=== PATIENT | male | born 1950 | race Caucasian/White ===

== ENCOUNTER 2016-04-16 15:44 | Inpatient (IN) | payer OTHER ==
--- NOTE | 2016-04-16 15:58 | PDOC ---
Rapid Medical Evaluation Time Seen by Provider: 04/16/16 15:54 Medical Evaluation: Allergies Allergy/AdvReac Type Severity Reaction Status Date / Time No Known Allergies Allergy Verified 04/16/16 15:53 04/16/16 15:54 I have performed a brief in-person evaluation of this patient. The patient presents with a chief complaint of: dizziness x 3days , off balance and nausea with headache 3 days ago Pertinent physical exam findings: on mult. psych meds (recent change in the past month), VSS I have ordered the following: EKG, orthostatic, cbc, comp,mag, ua, The patient will proceed to the ED for further evaluation. 04/16/16 15:58
[2016-04-16 16:42] LABS: BASOPHIL 0.2 % (0-2.0); EOSINOPHIL 0.4 % (0-4.5); MCH 31.8 pg (25.7-33.7); MCHC 34.6 g/dl (32.0-35.9); MEAN CELL VOLUME 91.7 fl (80-96); MEAN PLT VOLUME 8.6 fl (7.5-11.1); NEUTROPHILS 60.4 % (42.8-82.8); PLATELET COUNT 237 K/MM3 (134-434); RDW 13.1 % (11.9-15.9); WHITE BLOOD COUNT 9.4 K/mm3 (4.0-10.0)
[2016-04-16 17:09] LABS: ALBUMIN 3.9 g/dl (3.4-5.0); ANION GAP 9 (8-16); BILIRUBIN,TOTAL 0.8 mg/dL (0.2-1.0); CALCIUM 8.8 mg/dL (8.5-10.1); CO2 30 mmol/L (21-32); CREATININE 0.9 mg/dL (0.7-1.3); GLUCOSE,RANDOM 88 mg/dL (74-106); MAGNESIUM 2.3 mg/dL (1.8-2.4); SGOT/AST 28 U/L (15-37); SGPT/ALT 26 U/L (12-78); TOT PROT 7.7 g/dl (6.4-8.2)
[2016-04-16 17:10] LABS: ALK PHOS 82 U/L (45-117)
[2016-04-16 17:12] LABS: TROPONIN I < 0.02 ng/ml (0.00-0.05)
[2016-04-16] MEDS ORDERED: dilTIAZem HCL 50 MG/10 ML - 10 ML VIAL IVPUSH ONE (17:46)
[2016-04-16] MEDS ORDERED: dilTIAZem HCL 30 MG TABLET (FP) PO ONE (17:46)
[2016-04-16] MEDS ORDERED: dilTIAZem HCL 30 MG TABLET (FP) ONE (17:58)
[2016-04-16] MEDS ORDERED: dilTIAZem HCL 125 MG/25 ML - 25 ML VIAL ONE (17:59)
--- NOTE | 2016-04-16 18:02 | PDOC ---
History of Present Illness - General Chief Complaint: Lightheaded Stated Complaint: WEAKNESS,DIZZINESS , FATIGUE, FEVER Time Seen by Provider: 04/16/16 15:54 History Source: Patient - History of Present Illness Timing/Duration: reports: constant Severity/Quality: reports: mild Past History - Past Medical History Allergies/Adverse Reactions: Allergies Allergy/AdvReac Type Severity Reaction Status Date / Time No Known Allergies Allergy Verified 04/16/16 15:53 Home Medications: Ambulatory Orders Docusate Sodium [Colace -] 100 mg PO BID #20 capsule 07/12/14 Docusate Sodium [Dulcolax Stool Softener] 100 mg PO DAILY #15 capsule 08/31/14 Polyethylene Glycol 3350 [Miralax (For Bowel Prep) -] 255 gm PO QID #1 btl 08/31 Sodium Phosphate/Na Biphos [Fleet Adult Rectal Enema -] 133 ml RC BID PRN #6 enema 08/31/14 Venlafaxine HCl [Effexor -] 225 mg PO BID 08/31/14 GI Disorders: Yes (H/O HEMORRHOIDS,) Psychiatric Problems: Yes (DEPRESSION.) - Surgical History Lung Surgery: (LT THORACIC SX D/T PNEUMO.) - Psycho/Social/Smoking Cessation Hx Anxiety: No Suicidal Ideation: No Smoking History: Current every day smoker Have you smoked in the past 12 months: Yes Number of Cigarettes Smoked Daily: 20 Information on smoking cessation initiated: Yes 'Breaking Loose' booklet given: 04/16/16 Hx Alcohol Use: No Drug/Substance Use Hx: No Substance Use Type: None Cardiac Specific PMH - Complaint Specific PMHX GERD: No Review of Systems - Review of Systems Constitutional: No: Chills, Fever HEENTM: No: Blurred Vision Respiratory: No: Cough, Shortness of Breath Cardiac (ROS): No: Chest Pain ABD/GI: No: Diarrhea, Nausea, Vomiting : No: Dysuria Neurological: No: Headache, Dizziness *Physical Exam - Vital Signs Last Vital Signs Temp Pulse Resp BP Pulse Ox 97.4 F L 63 18 128/82 100 04/16/16 15:55 04/16/16 15:55 04/16/16 15:55 04/16/16 15:55 04/16/16 15:55 - Physical Exam General Appearance: Yes: Appropriately Dressed. No: Apparent Distress HEENT: positive: Normal Voice. negative: Scleral Icterus (R), Scleral Icterus ( L) Neck: positive: Supple Respiratory/Chest: positive: Lungs Clear, Normal Breath Sounds. negative: Respiratory Distress Cardiovascular: positive: Irregularly Irregular Gastrointestinal/Abdominal: positive: Soft. negative: Tender Extremity: positive: Normal Inspection Integumentary: positive: Dry, Warm Neurologic: positive: Fully Oriented, Alert, Normal Mood/Affect Heart Score/ECG Review - ECG Intrepretation Comment:: 04/16/16 18:16 rapid afib to 121 bpm ED Treatment Course - LABORATORY CBC & Chemistry Diagram: 04/16/16 16:30 04/16/16 16:30 - ADDITIONAL ORDERS Additional order review: Laboratory Results 04/16/16 04/16/16 16:30 16:30 Sodium 126 L Potassium 3.7 Chloride 87 L D Carbon Dioxide 30 Anion Gap 9 BUN 22 H D Creatinine 0.9 Creat Clearance w eGFR > 60 Random Glucose 88 Calcium 8.8 Magnesium 2.3 Total Bilirubin 0.8 AST 28 D ALT 26 D Alkaline Phosphatase 82 D Creatine Kinase 358 H CK-MB (CK-2) 8.122 H Troponin I < 0.02 Total Protein 7.7 Albumin 3.9 04/16/16 16:30 RBC 4.61 MCV 91.7 MCHC 34.6 RDW 13.1 MPV 8.6 Neutrophils % 60.4 Lymphocytes % 23.3 Monocytes % 15.7 H Eosinophils % 0.4 Basophils % 0.2 - RADIOLOGY Radiology Studies Ordered: Category Date Time Status CHEST X-RAY PORTABLE* [RAD] Stat Radiology 04/16/16 17:45 Taken - Medications Given in the ED: ED Medications Discontinued Medications Generic Name Dose Route Start Last Admin Trade Name Freq PRN Reason Stop Dose Admin Diltiazem HCl 30 mg 04/16/16 17:46 04/16/16 18:03 Cardizem - PO 04/16/16 17:47 30 mg ONCE ONE Administration Diltiazem HCl 20 mg 04/16/16 17:46 04/16/16 18:00 Cardizem Injection - IVPUSH 04/16/16 17:47 20 mg ONCE ONE Administration Medical Decision Making - Medical Decision Making 04/16/16 17:52 65 yo M, h/o depression, sent in by psychiatrist for unstable gait today in office. Pt states for the past 3 days he has felt "unsteady on his feet". Denies fall. States 5 days ago he also had headache and nausea which has since resolved. No dizziness, vomiting, visual changes or focal weakness. Patient denies chest pain or shortness of breath. See exam New onset afib -placed on monitor and given IV and po cardizem for rapid afib -[id number] score of 0 so will hold off on AC at this time -cards c/s placed -admit 04/16/16 17:56 04/16/16 18:03 *DC/Admit/Observation/Transfer Diagnosis at time of Disposition: New onset a-fib - Discharge Dispostion Condition at time of disposition: Fair Admit: Yes Decision to Admit order Date/Time: Decision to Admit Order Category Date Time Status Decision to Admit to Hospital Routine Admission 04/16/16 18:15 Active
[2016-04-16] MEDS ORDERED: SODIUM CHLORIDE 1,000 ML IV STA (18:14)
[2016-04-16 18:36] LABS: INR 1.1 (0.82-1.09); PROTHROMBIN TIME (PATIENT) 12.1 SEC (9.98-11.88)
--- NOTE | 2016-04-16 19:12 | CON.CARD ---
Consult Consult Specialty:: Cardiology Referred by:: Hospitalist Medicine Reason for Consultation:: Newly diagnosed afib - History of Present Illness Chief Complaint: Gait disturbance History of Present Illness: 65 yo WM initially presented with dysequilibrium, found to be in asymptomatic rapid afib 120s without chest pain, dyspnea, near or true syncope, palpitations , orthopnea, PND or LE edema. Spontaneously converted to SR with rate-control. - History Source History Provided By: Patient Limitations to Obtaining History: No Limitations - Alcohol/Substance Use Hx Alcohol Use: No - Smoking History Smoking history: Current every day smoker Have you smoked in the past 12 months: Yes Aproximately how many cigarettes per day: 20 Home Medications - Allergies Allergies/Adverse Reactions: Allergies Allergy/AdvReac Type Severity Reaction Status Date / Time No Known Allergies Allergy Verified 04/16/16 15:53 - Home Medications Home Medications: Ambulatory Orders Docusate Sodium [Colace -] 100 mg PO BID #20 capsule 07/12/14 Docusate Sodium [Dulcolax Stool Softener] 100 mg PO DAILY #15 capsule 08/31/14 Polyethylene Glycol 3350 [Miralax (For Bowel Prep) -] 255 gm PO QID #1 btl 08/31 Sodium Phosphate/Na Biphos [Fleet Adult Rectal Enema -] 133 ml RC BID PRN #6 enema 08/31/14 Venlafaxine HCl [Effexor -] 225 mg PO BID 08/31/14 Review of Systems - Review of Systems Neurological: reports: Incoordination, Unsteady Gait Vital Signs: Vital Signs Temperature 97.4 F L 04/16/16 15:55 Pulse Rate 58 L 04/16/16 18:45 Respiratory Rate 20 04/16/16 18:45 Blood Pressure 120/95 04/16/16 18:45 O2 Sat by Pulse Oximetry (%) 100 04/16/16 18:45 Constitutional: Yes: No Distress, Calm Neck: Yes: Supple Respiratory: Yes: Regular, CTA Bilaterally Gastrointestinal: Yes: Normal Bowel Sounds, Soft Cardiovascular: Yes: Regular Rate and Rhythm JVD: No Carotid Bruit: No Heart Sounds: Yes: S1, S2 Edema: No - Other Data Labs, Other Data: INR, PTT INR 1.10 (0.82-1.09) 04/16/16 17:23 Afib@121->NSR 60s Imaging - Results Chest X-ray: Pending Problem List - Problems (1) Paroxysmal atrial fibrillation Code(s): I48.0 - PAROXYSMAL ATRIAL FIBRILLATION (2) Hyponatremia Code(s): E87.1 - HYPO-OSMOLALITY AND HYPONATREMIA (3) Gait disturbance Code(s): R26.9 - UNSPECIFIED ABNORMALITIES OF GAIT AND MOBILITY Assessment/Plan 1. Paroxysmal atrial fibrillation -> SR [id number] 2. Gait disturbance 3. Hyponatremia P:1. Check TSH, echocardiogram to assess LV and valve fxn 2. Given low stroke risk score, not candidate for anticoagulation 3. Start Toprol XL 25 qd and ASA 81 qd 4. Further recommendations pending above study results, monitor Na levels, free water restrict 5. Thank you for consultative opportunity
--- NOTE | 2016-04-16 19:57 | HP ---
CHIEF COMPLAINT: new onset afib HISTORY OF PRESENT ILLNESS: 65 yo M, with apst medical h/o depressiona and anxiety was sent in by his psychiatrist because of unstable gait. Patient states that he noticed a unstable gait 3 days ago, he states he was walking and then he feels lightheaded and weakness in legs. He also reports that he had fall and hit his head. and neck stiffness, seizure, urine and stool incontinence. Denies any numbness and focal neurological deficit, chest pain, sob. He also reports having headache and nausea 5 days ago which get resolved. He states that he felt warm like having a fever and reports burning micturation and increase in frequency. Denies cough, runny nose, diarrhoea. In ED patient diagnosed to have new onset a fib ER course was notable for: (1) cbc, cmp, ekg (2) iv cardiazem (3)1 L fluid Recent Travel: no PAST MEDICAL HISTORY: depression PAST SURGICAL HISTORY:(LT THORACIC SX D/T PNEUMO.) Social History: Smoking: current smoker alcohol - no Drugs: no Family History: Allergies No Known Allergies Allergy (Verified 04/16/16 15:53) HOME MEDICATIONS: Home Medications Medication Instructions Recorded Docusate Sodium [Colace -] 100 mg PO BID #20 capsule 07/12/14 Docusate Sodium [Dulcolax Stool 100 mg PO DAILY #15 capsule 08/31/14 Softener] Polyethylene Glycol 3350 [Miralax 255 gm PO QID #1 btl 08/31/14 (For Bowel Prep) -] Sodium Phosphate/Na Biphos [Fleet 133 ml RC BID PRN #6 enema 08/31/14 Adult Rectal Enema -] Venlafaxine HCl [Effexor -] 225 mg PO BID 08/31/14 REVIEW OF SYSTEMS CONSTITUTIONAL: Absent: fever, chills, diaphoresis, generalized weakness, malaise, HEENT: Absent: rhinorrhea, nasal congestion, throat pain, throat swelling, difficulty swallowing, mouth swelling, CARDIOVASCULAR: Absent: chest pain, syncope, palpitations, irregular heart rate, lightheadedness , peripheral edema RESPIRATORY: Absent: cough, shortness of breath, dyspnea with exertion, orthopnea, wheezing, stridor, hemoptysis GASTROINTESTINAL: Absent: abdominal pain, abdominal distension, nausea, vomiting, diarrhea, constipation, GENITOURINARY: Absent: dysuria, frequency, urgency, hesitancy, hematuria, flank pain, genital pain MUSCULOSKELETAL: Absent: myalgia, arthralgia, joint swelling, back pain, neck pain SKIN: Absent: rash, itching, pallor HEMATOLOGIC/IMMUNOLOGIC: Absent: easy bleeding, easy bruising, lymphadenopathy, frequent infections ENDOCRINE: Absent: unexplained weight gain, unexplained weight loss, heat intolerance, cold intolerance NEUROLOGIC: Absent: headache, focal weakness or paresthesias, dizziness, unsteady gait, seizure, mental status changes, bladder or bowel incontinence PSYCHIATRIC: Absent: anxiety, depression, suicidal or homicidal ideation, hallucinations. PHYSICAL EXAMINATION Vital Signs - 24 hr 04/16/16 04/16/16 04/16/16 18:20 18:26 18:45 Pulse Rate [ 102 H 95 H 58 L Apical] Respiratory 20 20 Rate Blood Pressure 91/71 120/95 [Right Arm] O2 Sat by Pulse 100 100 Oximetry (%) GENERAL: Awake, alert, and fully oriented, in no acute distress. HEAD: Normal with no signs of trauma. EYES: Pupils equal, round and reactive to light, extraocular movements intact, sclera anicteric, conjunctiva clear. EARS, NOSE, THROAT: Ears normal, nares patent, oropharynx clear without exudates. NECK: Normal range of motion, supple without lymphadenopathy, LUNGS: Breath sounds equal, clear to auscultation bilaterally. No wheezes, and no crackles. No accessory muscle use. HEART: Regular rate and rhythm, normal S1 and S2 without murmur, rub or gallop. ABDOMEN: Soft, nontender, not distended, normoactive bowel sounds, no guarding, no rebound, no masses. No hepatomegaly or splenomegaly. MUSCULOSKELETAL: Normal range of motion at all joints. No bony deformities or tenderness. No CVA tenderness. UPPER EXTREMITIES: 2+ pulses, warm, well-perfused. No cyanosis. No clubbing. Cap refill <2 seconds. No peripheral edema. LOWER EXTREMITIES: 2+ pulses, warm, well-perfused. No calf tenderness. No peripheral edema. NEUROLOGICAL: Cranial nerves II-XII intact. Normal speech., made him stand and he complained of lightheadedness PSYCHIATRIC: Cooperative. Good eye contact. Appropriate mood and affect. SKIN: Warm, dry, normal turgor, no rashes or lesions noted CBCD WBC 9.4 K/mm3 (4.0-10.0) 04/16/16 16:30 RBC 4.61 M/mm3 (4.00-5.60) 04/16/16 16:30 Hgb 14.7 GM/dL (11.7-16.9) 04/16/16 16:30 Hct 42.3 % (35.4-49) 04/16/16 16:30 MCV 91.7 fl (80-96) 04/16/16 16:30 MCHC 34.6 g/dl (32.0-35.9) 04/16/16 16:30 RDW 13.1 % (11.9-15.9) 04/16/16 16:30 Plt Count 237 K/MM3 (134-434) 04/16/16 16:30 MPV 8.6 fl (7.5-11.1) 04/16/16 16:30 CMP Sodium 126 mmol/L (136-145) L 04/16/16 16:30 Potassium 3.7 mmol/L (3.5-5.1) 04/16/16 16:30 Chloride 87 mmol/L (98-107) L D 04/16/16 16:30 Carbon Dioxide 30 mmol/L (21-32) 04/16/16 16:30 Anion Gap 9 (8-16) 04/16/16 16:30 BUN 22 mg/dL (7-18) H D 04/16/16 16:30 Creatinine 0.9 mg/dL (0.7-1.3) 04/16/16 16:30 Creat Clearance w eGFR > 60 (>60) 04/16/16 16:30 Random Glucose 88 mg/dL (74-106) 04/16/16 16:30 Calcium 8.8 mg/dL (8.5-10.1) 04/16/16 16:30 Total Bilirubin 0.8 mg/dL (0.2-1.0) 04/16/16 16:30 AST 28 U/L (15-37) D 04/16/16 16:30 ALT 26 U/L (12-78) D 04/16/16 16:30 Alkaline Phosphatase 82 U/L (45-117) D 04/16/16 16:30 Total Protein 7.7 g/dl (6.4-8.2) 04/16/16 16:30 Albumin 3.9 g/dl (3.4-5.0) 04/16/16 16:30 CARDIAC ENZYMES Creatine Kinase 358 IU/L (39-308) H 04/16/16 16:30 Troponin I < 0.02 ng/ml (0.00-0.05) 04/16/16 16:30 Current Medications Generic Name Dose Route Start Last Admin Trade Name Arnaldo PRN Reason Stop Dose Admin Aspirin 81 mg 04/16/16 19:30 Asa - PO DAILY AMNA Sodium Chloride 1,000 mls @ 75 mls/hr 04/16/16 20:15 Normal Saline - IV ASDIR AMNA Metoprolol Succinate 25 mg 04/16/16 19:30 Toprol Xl - PO DAILY AMNA . ASSESSMENT/PLAN: : 65 yo M, with apst medical h/o depressiona and anxiety was sent in by his psychiatrist because of unstable gait and found to have a fib. new onset afib rate control, got cardiazem in ed started on metoprolol xl 25 mg daily [id number] SCORE 0, no ac required at this time, started on aspirin 81 mg daily Follow electolyte and tsh Follow ECHO to assess LV and valve fxn cardiac monitoring monitor vitals will place him in tele cardiology consult appreciated Hyponatremia follow urine lytes, osmo, serum osmo on IV fluid ns 75ml/hr goal to increase by 0.5 to 1 meq/hr Fall could be due to postural hypotension, hponatremia or a fib Follow CT head ordered orthostatic vitals. started on IV fluid NS 75 ml/hr physical therapy evaluation. fall risk precaution Depression/ anxiety continue home meds h/o chronic tinnitus he follow up with intake worker in out patient ENT follow up as an out patient Fluid : NS 75ml/hr electrolyte : repeat in morning nutrition : regular diet add salt in it. dvt pro: scd, not on sq heparin due to fall risk gi pro ; not required physical therapy Dispo: admit in tele Visit type - Emergency Visit Emergency Visit: Yes ED Registration Date: 04/16/16 Care time: The patient presented to the Emergency Department on the above date and was hospitalized for further evaluation of their emergent condition. - New Patient This patient is new to me today: Yes Date on this admission: 04/17/16 - Critical Care Critical Care patient: No
[2016-04-16] MEDS ORDERED: ASPIRIN 81 MG CHEWABLE TABLETS ONE (20:21)
[2016-04-16] MEDS ORDERED: METOPROLOL SUCCINATE 50 MG TAB.SR.24H (FP) ONE (20:21)
[2016-04-16] MEDS: ASPIRIN 81 MG CHEWABLE TABLETS PO SCH (20:30)
[2016-04-16] MEDS: METOPROLOL SUCCINATE 25 MG TAB.SR.24H (FP) PO SCH (20:30)
[2016-04-16 20:43] LABS: URINE APPEARANCE CLEAR; URINE BILIRUBIN NEGATIVE (NEGATIVE); URINE COLOR COLORLESS; URINE GLUCOSE (UA) NEGATIVE (NEGATIVE); URINE KETONE NEGATIVE (NEGATIVE); URINE LEUK ESTERASE NEGATIVE (NEGATIVE); URINE NITRITE NEGATIVE (NEGATIVE); URINE PROTEIN NEGATIVE (NEGATIVE); URINE UROBILINOGEN NEGATIVE E.U./dl (0.2-1.0)
[2016-04-16 20:46] LABS: URINE BLOOD 2+ (NEGATIVE)
[2016-04-16 20:50] LABS: URINE RBC 2 /hpf (0-3)
--- NOTE | 2016-04-16 21:22 | PN ---
[id number] the patient. I reviewed the resident's note and discussed the case with the resident. I agree with the resident's findings and plan as documented. SUBJECTIVE: 65 year old male who presented with 3 days of dizziness, and unsteady gait, nausea, and headache 3 days ago. The patented reported that he has had 5 falls in 3 days secondary to his symptoms. The patient noted that 2 of his falls (1 today and 1 yesterday) resulted in him hitting his head against a pipe in his bathroom. The patient denied loss of consciousness from any of his falls. In ED patient was found to be in afib with irregular heartbeat. Past Medical History: Constipation, hemorrhoids, depression, anxiety, tenitis OBJECTIVE: Vital Signs: Last Vital Signs Temp Pulse Resp BP Pulse Ox 97.4 F L 58 L 20 120/95 99 04/16/16 15:55 04/16/16 18:45 04/16/16 18:45 04/16/16 18:45 04/16/16 19:50 GENERAL: Awake, alert, and fully oriented, in no acute distress HEENT: Atraumatic. PERRLA, EOMI. Moist mucosa. No JVD LUNGS: No distress, speaks full sentences, clear to auscultation bilaterally HEART: Regular rate and rhythm, normal S1 and S2, no murmurs, rubs or gallops, peripheral pulses normal and equal bilaterally. ABDOMEN: Soft, nontender, normoactive bowel sounds. No guarding, no rebound. No masses EXTREMITIES: Normal inspection, Normal range of motion, no edema. No clubbing or cyanosis. NEUROLOGICAL: Cranial nerves II through XII grossly intact. Normal speech, normal gait, no focal sensorimotor deficits SKIN: Warm, Dry, normal turgor, no rashes or lesions noted. Labs: CBCD WBC 9.4 K/mm3 (4.0-10.0) 04/16/16 16:30 RBC 4.61 M/mm3 (4.00-5.60) 04/16/16 16:30 Hgb 14.7 GM/dL (11.7-16.9) 04/16/16 16:30 Hct 42.3 % (35.4-49) 04/16/16 16:30 MCV 91.7 fl (80-96) 04/16/16 16:30 MCHC 34.6 g/dl (32.0-35.9) 04/16/16 16:30 RDW 13.1 % (11.9-15.9) 04/16/16 16:30 Plt Count 237 K/MM3 (134-434) 04/16/16 16:30 MPV 8.6 fl (7.5-11.1) 04/16/16 16:30 CMP Sodium 126 mmol/L (136-145) L 04/16/16 16:30 Potassium 3.7 mmol/L (3.5-5.1) 04/16/16 16:30 Chloride 87 mmol/L (98-107) L D 04/16/16 16:30 Carbon Dioxide 30 mmol/L (21-32) 04/16/16 16:30 Anion Gap 9 (8-16) 04/16/16 16:30 BUN 22 mg/dL (7-18) H D 04/16/16 16:30 Creatinine 0.9 mg/dL (0.7-1.3) 04/16/16 16:30 Creat Clearance w eGFR > 60 (>60) 04/16/16 16:30 Calcium 8.8 mg/dL (8.5-10.1) 04/16/16 16:30 Total Bilirubin 0.8 mg/dL (0.2-1.0) 04/16/16 16:30 AST 28 U/L (15-37) D 04/16/16 16:30 ALT 26 U/L (12-78) D 04/16/16 16:30 Alkaline Phosphatase 82 U/L (45-117) D 04/16/16 16:30 Total Protein 7.7 g/dl (6.4-8.2) 04/16/16 16:30 Albumin 3.9 g/dl (3.4-5.0) 04/16/16 16:30 Imagin. Abdomen X-ray Impression: severe constipation with fecal impact. Correlation recommended ASSESSMENT AND PLAN : 1. New onset afib -Metoprolol XL 25 mg daily -Aspirin 81 mg daily -ECHO -Chadsvasc score is 0 -Cardiology consult appreciated 2. Moderate Hyponatremia -Follow urine lytes repeat in AM - Normal saline 3. Fall -CT head -Repeat BMP in AM -IV fluid normal saline 75 ml/hr -Fall risk precaution -Physical therapy evaluation for gait 4. Tinnitus- may be contributing frequent falls -[employer] follow up outpatient -ENT follow up outpatient 5. Depression/anxiety -Continue home medications 6. DVT PPX -SCDs Admit to tele Documentation prepared by Jd Miranda, acting as medical radiation tech for Dr. Karlene Winter MD. <Karlene Winter - Last Filed: 04/22/16 19:59> Teaching Attending Note Name of Resident: Billy Starkey
[2016-04-16] MEDS ORDERED: VENLAFAXINE HCL 100 MG TABLET PO SCH (22:00)
[2016-04-16] MEDS: VENLAFAXINE HCL 75 MG E.R. CAPSULES (FP) PO SCH (22:53)
[2016-04-16] MEDS: SODIUM CHLORIDE 1,000 ML IV SCH (22:55)
[2016-04-17 01:21] VITALS: BMI 26.2
[2016-04-17 07:03] LABS: BASOPHIL 0.3 % (0-2.0); EOSINOPHIL 1.1 % (0-4.5); MCH 31.8 pg (25.7-33.7); MCHC 34.8 g/dl (32.0-35.9); MEAN CELL VOLUME 91.3 fl (80-96); MEAN PLT VOLUME 8.7 fl (7.5-11.1); NEUTROPHILS 54.1 % (42.8-82.8); PLATELET COUNT 199 K/MM3 (134-434); RDW 13.1 % (11.9-15.9); WHITE BLOOD COUNT 9.3 K/mm3 (4.0-10.0)
[2016-04-17 07:29] LABS: ALBUMIN 3.3 g/dl (3.4-5.0); ANION GAP 11 (8-16); CALCIUM 8.3 mg/dL (8.5-10.1); CO2 27 mmol/L (21-32); CREATININE 0.8 mg/dL (0.7-1.3); GLUCOSE,RANDOM 88 mg/dL (74-106); MAGNESIUM 2.2 mg/dL (1.8-2.4); PHOSPHOROUS 2.7 mg/dL (2.5-4.9); SGOT/AST 20 U/L (15-37); SGPT/ALT 23 U/L (12-78)
[2016-04-17 07:34] LABS: ALK PHOS 65 U/L (45-117); BILIRUBIN,TOTAL 0.9 mg/dL (0.2-1.0); TOT PROT 6.4 g/dl (6.4-8.2); TROPONIN I 0.02 ng/ml (0.00-0.05)
--- NOTE | 2016-04-17 09:02 | PN ---
Physical Exam: SUBJECTIVE: Patient seen and examined Patient feels weak, stated that drinks more than 2 cups of coffee per day. Worried about his cats that will not be fed. OBJECTIVE: Vital Signs Temperature 97.6 F 04/17/16 06:00 Pulse Rate 59 L 04/17/16 06:00 Respiratory Rate 20 04/17/16 06:00 Blood Pressure 128/66 04/17/16 06:00 O2 Sat by Pulse Oximetry (%) 99 04/16/16 21:00 GENERAL: The patient is awake, alert, and fully oriented, in no acute distress. lying in bed comfortably HEAD: Normal with no signs of trauma. EYES: PERRL, extraocular movements intact, sclera anicteric, conjunctiva clear. No ptosis. ENT: Ears normal, oropharynx clear without exudates, moist mucous membranes. NECK: Trachea midline, full range of motion, supple. LUNGS: Breath sounds equal, clear to auscultation bilaterally, no wheezes, no crackles, no accessory muscle use. HEART: Regular rate and rhythm, S1, S2 without murmur, rub or gallop. ABDOMEN: Soft, nontender, nondistended, normoactive bowel sounds, no guarding, no rebound, no hepatosplenomegaly, no masses. EXTREMITIES: 2+ pulses, warm, well-perfused, no edema. NEUROLOGICAL: Cranial nerves II through XII grossly intact. Normal speech, gait not observed. PSYCH: Normal mood, normal affect. SKIN: Warm, dry, normal turgor, no rashes or lesions noted CBCD WBC 9.3 K/mm3 (4.0-10.0) 04/17/16 06:20 RBC 4.27 M/mm3 (4.00-5.60) 04/17/16 06:20 Hgb 13.6 GM/dL (11.7-16.9) 04/17/16 06:20 Hct 39.0 % (35.4-49) 04/17/16 06:20 MCV 91.3 fl (80-96) 04/17/16 06:20 MCHC 34.8 g/dl (32.0-35.9) 04/17/16 06:20 RDW 13.1 % (11.9-15.9) 04/17/16 06:20 Plt Count 199 K/MM3 (134-434) 04/17/16 06:20 MPV 8.7 fl (7.5-11.1) 04/17/16 06:20 CMP Sodium 135 mmol/L (136-145) L 04/17/16 06:20 Potassium 3.3 mmol/L (3.5-5.1) L 04/17/16 06:20 Chloride 97 mmol/L (98-107) L D 04/17/16 06:20 Carbon Dioxide 27 mmol/L (21-32) 04/17/16 06:20 Anion Gap 11 (8-16) 04/17/16 06:20 BUN 21 mg/dL (7-18) H 04/17/16 06:20 Creatinine 0.8 mg/dL (0.7-1.3) 04/17/16 06:20 Creat Clearance w eGFR > 60 (>60) 04/17/16 06:20 Random Glucose 88 mg/dL (74-106) 04/17/16 06:20 Calcium 8.3 mg/dL (8.5-10.1) L 04/17/16 06:20 Total Bilirubin 0.9 mg/dL (0.2-1.0) 04/17/16 06:20 AST 20 U/L (15-37) D 04/17/16 06:20 ALT 23 U/L (12-78) 04/17/16 06:20 Alkaline Phosphatase 65 U/L (45-117) D 04/17/16 06:20 Total Protein 6.4 g/dl (6.4-8.2) 04/17/16 06:20 Albumin 3.3 g/dl (3.4-5.0) L 04/17/16 06:20 CARDIAC ENZYMES Creatine Kinase 205 IU/L (39-308) D 04/17/16 06:20 Troponin I 0.02 ng/ml (0.00-0.05) 04/17/16 06:20 Active Medications Generic Name Dose Route Start Last Admin Trade Name Freq PRN Reason Stop Dose Admin Aspirin 81 mg 04/16/16 19:30 04/16/16 20:30 Asa - PO 81 mg DAILY AMNA Administration Bupropion HCl 75 mg 04/17/16 10:00 Wellbutrin - PO DAILY AMNA Sodium Chloride 1,000 mls @ 75 mls/hr 04/16/16 20:15 04/16/16 22:55 Normal Saline - IV 75 mls/hr ASDIR AMNA Administration Metoprolol Succinate 25 mg 04/16/16 19:30 04/16/16 20:30 Toprol Xl - PO 25 mg DAILY AMNA Administration Venlafaxine HCl 225 mg 04/16/16 22:00 04/16/16 22:53 Effexor Xr - PO 225 mg BID AMNA Administration Home Medications Medication Instructions Recorded Venlafaxine HCl [Effexor -] 225 mg PO BID 08/31/14 Bupropion HCl [Wellbutrin -] 75 mg PO DAILY 04/16/16 ASSESSMENT/PLAN: Patient is a 65 yo M, with PMHx of depression and anxiety was sent in by his psychiatrist because of unstable gait and found to have a fib. # New onset afib with rate controlled on Toprol XL 12.5mg for now, s/p cardiazem in ED. started on metoprolol xl 12.5mg daily ;[id number] SCORE 0, no ac required at this time, started on aspirin 81 mg daily ;Follow electolyte ,TSH , ECHO to assess LV and valve fxn ; in tele, vitals ;cardiology consult appreciated # acute Hyponatremia; due to dehydration, IVF 0.9NS will increase the rate to 125cc/hr, will order urine osmo, serum osmo; to r/o SIADH since patient in on antidepressants. # Acute dehydration ;IVF at 125cc/hr # Acute Hypokalemia IVF with KCL 40meq at 125cc/hr # Fall could be due to postural hypotension, due to dehydration , hyponatremia or a fib; Follow CT head; ordered orthostatic vitals. started on IV fluid NS 75 ml/hr; physical therapy evaluation; fall risk precaution # Hx of Depression/ anxiety continue home meds # h/o chronic tinnitus follow up with electronics supervisor in out patient ;ENT follow up as an out patient DVT px: scd, not on sq heparin due to fall risk physical therapy Visit type - Emergency Visit Emergency Visit: Yes ED Registration Date: 04/16/16 Care time: The patient presented to the Emergency Department on the above date and was hospitalized for further evaluation of their emergent condition. - New Patient This patient is new to me today: Yes Date on this admission: 04/17/16 - Critical Care Critical Care patient: No
[2016-04-17] MEDS ORDERED: PT OWN MED DRAWER 7, Y5N ONE ×2 (09:22→21:24)
[2016-04-17] MEDS: METOPROLOL SUCCINATE 25 MG TAB.SR.24H (FP) PO SCH (10:13)
[2016-04-17] MEDS: ASPIRIN 81 MG CHEWABLE TABLETS PO SCH (10:13)
[2016-04-17] MEDS: VENLAFAXINE HCL 75 MG E.R. CAPSULES (FP) PO SCH ×2 (10:13→21:25)
[2016-04-17] MEDS: buPROPion HCL 75 MG TABLET PO SCH ×2 (10:52→13:44)
[2016-04-17] MEDS: SODIUM CHLORIDE 1,000 ML IV SCH (11:00)
--- NOTE | 2016-04-17 13:37 | PN ---
Progress Note, Physician Chief Complaint: Not in distress History of Present Illness: Patient was seen and examined. Awake and alert. Chart was reviewed Denies chest pain, SOB or palpitation Monitor reveals sinus rhythm converted from AF Patient presents with orthostatic hypotension - Current Medication List Current Medications: Active Medications Aspirin (Asa -) 81 mg PO DAILY [facility] Last Admin: 04/17/16 10:13 Dose: 81 mg Bupropion HCl (Wellbutrin -) 75 mg PO DAILY [facility] Last Admin: 04/17/16 10:52 Dose: Not Given Sodium Chloride (Normal Saline -) 1,000 mls @ 75 mls/hr IV ASDIR [facility] Last Admin: 04/17/16 11:00 Dose: 75 mls/hr Metoprolol Succinate (Toprol Xl -) 25 mg PO DAILY [facility] Last Admin: 04/17/16 10:13 Dose: 25 mg Venlafaxine HCl (Effexor Xr -) 225 mg PO BID [facility] Last Admin: 04/17/16 10:13 Dose: 225 mg - Objective Vital Signs: Vital Signs Temperature 97.6 F 04/17/16 06:00 Pulse Rate 67 04/17/16 10:10 Respiratory Rate 20 04/17/16 06:00 Blood Pressure 119/63 04/17/16 10:10 O2 Sat by Pulse Oximetry (%) 99 04/17/16 09:00 Neck: Yes: Supple Cardiovascular: Yes: Regular Rate and Rhythm, S1, S2 Respiratory: Yes: CTA Bilaterally Gastrointestinal: Yes: Normal Bowel Sounds, Soft. No: Tenderness Edema: No Additional Findings/Remarks: - Review of Systems Constitutional: denies: Fever. denies: Chills Cardiovascular: denies: Chest Pain, Palpitations, Shortness of Breath Respiratory: denies: Cough, Hemoptysis, Orthopnea, PND Gastrointestinal: denies: Abdominal Pain. denies: Diarrhea, Melena, Nausea, Rectal Bleeding, Vomiting Genitourinary: denies: Dysuria Neurological: denies: Dizziness, Headache, Seizure, Syncope Labs: CBC, BMP 04/17/16 06:20 04/17/16 06:20 INR, PTT INR 1.10 (0.82-1.09) 04/16/16 17:23 Problem List - Problems (1) Gait disturbance Code(s): R26.9 - UNSPECIFIED ABNORMALITIES OF GAIT AND MOBILITY (2) Hyponatremia Code(s): E87.1 - HYPO-OSMOLALITY AND HYPONATREMIA (3) Paroxysmal atrial fibrillation Code(s): I48.0 - PAROXYSMAL ATRIAL FIBRILLATION (4) Orthostatic hypotension Code(s): I95.1 - ORTHOSTATIC HYPOTENSION Assessment/Plan 1. Paroxysmal atrial fibrillation now in sinus rhythm - [id number] score of 0 2. Gait disturbance 3. Hyponatremia - improving 4. Orthostatic hypotension PLAN: 1. Transthoracic echocardiography to assess LV and valvular function 2. Given low stroke risk score, continue ASA 81 mg once a day 3. Continue Toprol XL 25 mg QD 4. Continue with correction of Na level. Gentle hydration with saline with caution to treat orthostasis - monitor BP Farhad Patton MD
[2016-04-17] MEDS ORDERED: SODIUM CHLORIDE 1,000 ML with POTASSIUM CHLORIDE 40 MEQ IVPB SCH (14:45)
[2016-04-17] MEDS ORDERED: SODIUM CHLORIDE 1,000 ML IV SCH (14:45)
[2016-04-17 17:42] LABS: URINE MARIJUANA THC NEGATIVE ng/ml (CUTOFF=50)
[2016-04-17] MEDS: SODIUM CHLORIDE 1,000 ML with POTASSIUM CHLORIDE 40 MEQ IV SCH (18:15)
[2016-04-17 20:11] LABS: CHLORIDE,RANDOM URINE < 10 MMOL/L; SODIUM,RANDOM URINE 8 MMOL/L
[2016-04-17 20:34] LABS: URINE CREATININE 69.7 mg/dL
[2016-04-18] MEDS: SODIUM CHLORIDE 1,000 ML with POTASSIUM CHLORIDE 40 MEQ IV SCH (02:27)
[2016-04-18 07:22] LABS: ALBUMIN 3.3 g/dl (3.4-5.0); ANION GAP 7 (8-16); CO2 31 mmol/L (21-32); GLUCOSE,RANDOM 83 mg/dL (74-106)
[2016-04-18 07:25] LABS: ALK PHOS 71 U/L (45-117); BILIRUBIN,TOTAL 0.7 mg/dL (0.2-1.0); CREATININE 0.9 mg/dL (0.7-1.3); FREE T4 1.03 ng/dl (0.76-1.16); SGOT/AST 20 U/L (15-37); SGPT/ALT 23 U/L (12-78); TOT PROT 6.3 g/dl (6.4-8.2)
[2016-04-18 09:47] LABS: OSMOLALITY,SERUM 281 mosm/kg (278-305)
--- NOTE | 2016-04-18 10:52 | PN ---
Progress Note (short form) - Note Progress Note: Patient is sitting on the chair having his breakfast. Stated that he is drooling from the left side when he is drinking. He does not remember drooling before but he states that he had facial droop before coming to the hospital but realizes more today. No difficulty with speech. Temperature 97.4 F L 04/18/16 06:00 Pulse Rate 59 L 04/18/16 06:00 Respiratory Rate 18 04/18/16 06:00 Blood Pressure 133/76 04/18/16 06:00 O2 Sat by Pulse Oximetry (%) 96 04/17/16 21:00 GENERAL: The patient is awake, alert, and fully oriented, in no acute distress. lying in bed comfortably HEAD: Normal with no signs of trauma. EYES: PERRL, extraocular movements intact, sclera anicteric, conjunctiva clear. ENT: Ears normal, oropharynx clear without exudates, moist mucous membranes. NECK: Trachea midline, full range of motion, supple. LUNGS: Breath sounds equal, clear to auscultation bilaterally, no wheezes, no crackles, no accessory muscle use. HEART: Regular rate and rhythm, S1, S2 positive, no murmur appreciated, rub or gallop. ABDOMEN: Soft, nontender, nondistended, normoactive bowel sounds, no guarding, no rebound, no hepatosplenomegaly, no masses. EXTREMITIES: 2+ pulses, warm, well-perfused, no edema. NEUROLOGICAL: Cranial nerves II through XII grossly intact. Normal speech, left facial droop. PSYCH: Normal mood, normal affect. SKIN: Warm, dry, normal turgor, no rashes or lesions noted CBCD WBC 9.3 K/mm3 (4.0-10.0) 04/17/16 06:20 RBC 4.27 M/mm3 (4.00-5.60) 04/17/16 06:20 Hgb 13.6 GM/dL (11.7-16.9) 04/17/16 06:20 Hct 39.0 % (35.4-49) 04/17/16 06:20 MCV 91.3 fl (80-96) 04/17/16 06:20 MCHC 34.8 g/dl (32.0-35.9) 04/17/16 06:20 RDW 13.1 % (11.9-15.9) 04/17/16 06:20 Plt Count 199 K/MM3 (134-434) 04/17/16 06:20 MPV 8.7 fl (7.5-11.1) 04/17/16 06:20 CMP Sodium 136 mmol/L (136-145) 04/18/16 05:55 Potassium 3.5 mmol/L (3.5-5.1) 04/18/16 05:55 Chloride 98 mmol/L (98-107) 04/18/16 05:55 Carbon Dioxide 31 mmol/L (21-32) 04/18/16 05:55 Anion Gap 7 (8-16) L 04/18/16 05:55 BUN 17 mg/dL (7-18) 04/18/16 05:55 Creatinine 0.9 mg/dL (0.7-1.3) 04/18/16 05:55 Creat Clearance w eGFR > 60 (>60) 04/18/16 05:55 Random Glucose 83 mg/dL (74-106) 04/18/16 05:55 Calcium 8.0 mg/dL (8.5-10.1) L 04/18/16 05:55 Total Bilirubin 0.7 mg/dL (0.2-1.0) D 04/18/16 05:55 AST 20 U/L (15-37) 04/18/16 05:55 ALT 23 U/L (12-78) 04/18/16 05:55 Alkaline Phosphatase 71 U/L (45-117) 04/18/16 05:55 Total Protein 6.3 g/dl (6.4-8.2) L 04/18/16 05:55 Albumin 3.3 g/dl (3.4-5.0) L 04/18/16 05:55 CARDIAC ENZYMES Creatine Kinase 205 IU/L (39-308) D 04/17/16 06:20 Troponin I 0.02 ng/ml (0.00-0.05) 04/17/16 06:20 Current Medications Generic Name Dose Route Start Last Admin Trade Name Freq PRN Reason Stop Dose Admin Aspirin 81 mg 04/16/16 19:30 04/17/16 10:13 Asa - PO 81 mg DAILY [facility] Administration Bupropion HCl 75 mg 04/17/16 10:00 04/17/16 13:44 Wellbutrin - PO 75 mg DAILY [facility] Administration Metoprolol Succinate 25 mg 04/16/16 19:30 04/17/16 10:13 Toprol Xl - PO 25 mg DAILY [facility] Administration Venlafaxine HCl 225 mg 04/16/16 22:00 04/17/16 21:25 Effexor Xr - PO 225 mg BID [facility] Administration Home Medications Medication Instructions Recorded Venlafaxine HCl [Effexor -] 225 mg PO BID 08/31/14 Bupropion HCl [Wellbutrin -] 75 mg PO DAILY 04/16/16 CT of the head: Left anterior frontal 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 Mild chronic sinusitis ASSESSMENT/PLAN: Patient is a 65 yo M, with PMHx of depression and anxiety was sent in by his psychiatrist because of unstable gait and found to have a fib. # New onset afib with rate controlled on Toprol XL 25mg po daily s/p cardiazem in ED. started on metoprolol xl 25mg po daily ;[id number] SCORE 2 patient needs to be on anticoagulation ; discussed with [employer] will start the patient on NOacs, ECHO to assess LV and valve fxn ; in tele, vitals ; cardiology consult appreciated , carotid duplex, neuro consult to see the patient, possible MRI as per neuro. 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 Neuro consult to evaluate further. # s/p Hyponatremia continue IVF ; Sodium improved s/p acute dehydration, IVF 0.9NS continue for 1 more liter. # s/p Acute dehydration ;IVF at 125cc/hr #s/p Acute Hypokalemia IVF with KCL 40meq at 125cc/hr # Fall could be due to postural hypotension, due to dehydration , hyponatremia or a fib; Follow CT head; ordered orthostatic vitals. started on IV fluid NS 75 ml/hr; physical therapy evaluation; fall risk precaution # Hx of Depression/ anxiety continue home meds # h/o chronic tinnitus follow up with frit burner as an out patient ;ENT follow up as an out patient DVT px: scd, physical therapy Visit type - Emergency Visit Emergency Visit: Yes ED Registration Date: 04/16/16 Care time: The patient presented to the Emergency Department on the above date and was hospitalized for further evaluation of their emergent condition. - New Patient This patient is new to me today: No - Critical Care Critical Care patient: No
[2016-04-18] MEDS: buPROPion HCL 75 MG TABLET PO SCH (10:54)
[2016-04-18] MEDS: ASPIRIN 81 MG CHEWABLE TABLETS PO SCH (10:54)
[2016-04-18] MEDS: METOPROLOL SUCCINATE 25 MG TAB.SR.24H (FP) PO SCH (10:54)
[2016-04-18] MEDS: VENLAFAXINE HCL 75 MG E.R. CAPSULES (FP) PO SCH ×2 (10:54→21:52)
--- NOTE | 2016-04-18 13:44 | CONSULT ---
Admitting History and Physical - Primary Care Physician PCP: Roshni Vides - Admission History of Present Illness: Pt admitted with c/o dysequilibrium, found to be in asymptomatic rapid afib 120s. He reports losing balance and falling repeatedly over a week period. Today, patient reported to PMD drooling from the left side when he is drinking. History Source: Patient, Family Member Limitations to Obtaining History: No Limitations - Smoking History Smoking history: Current every day smoker Have you smoked in the past 12 months: Yes Aproximately how many cigarettes per day: 20 If you are a former smoker, when did you quit?: 04/12/16 - Alcohol/Substance Use Hx Alcohol Use: No - Social History Usual Living Arrangement: Yes: Alone History - Admission Reason For Visit: NEW ONSET OF AFIB - Diagnostics X-ray: Report Reviewed CT Scan: Report Reviewed - General Mental Status: Alert and Oriented, Awake and Alert, Able to Follow Commands, Vague (said to be baseline, per LT friend.) Attention: Intact Ability to Follow Directions: Good Head/Neck Control: WFL - Hearing Hearing: Impaired (reports last hearing test by color artist in 1981.h/o tinnitus. Reports increased hearing over the last month.) Speech Evaluation - Communication Primary Language: AZERI Communication: Yes: Within Normal Limits, Simple Responses Oral Expression Ability: Yes: No Impairment - Speech Production Able to Make Needs Known: Yes: WNL Intelligibility: Yes: WNL - Speech Characteristics Voice Loudness: Normal Voice Pitch: Yes: Normal Voice Phonatory-based Quality: Yes: Normal Speech Pattern: Normal Speech Clarity: < 100% Nasal Resonance: Normal Articulation: Yes: Precise Rate of Speech: Intact - Language/Auditory Comprehension Follows: Yes: 2 Stage Simple Commands Observation: Benefits from Slow Speech: Yes, Benefits from Repetiton: Yes, Benefits from Increased Volume of Speech: Yes - Language/Verbal Expression Able to Respond to Simple Queries: Yes: WNL Able to Communicate Wants and Needs: Yes: WNL Functional Communication Status: Yes: WNL - Swallow Evaluation/Bedside Assessment Current Nutritional Intake: Regular Oral Secretions: Yes: Drooling (left side while drinking from a cup, eliminated with straw drinking) Dentition: Yes: Adequate Facial Symmetry at Rest: Facial Droop Left (upper and lower facial weakness. Inability to close left eye.) Facial Symmetry on Retraction: Facial Droop Left Sensation: Normal (according to pt) Pucker Lips: Droops Left Smile: Droops Left Lingual Movement: Symmetric Lingual Speed of Movement: Normal Lingual Movement Strgth Against Opposition: Normal Lingual Movement Characteristics: Normal Velopharyngeal Movement: Normal Laryngeal Elevation: WFL Laryngeal Movement: Able to Palpate Rate of Intake: WFL Bolus Size: WFL Labial Seal: Impaired Left Chewing: WFL Oral Prep Time: WFL A-P Transit: WFL Timing of Swallow: WFL Coughing/Throat Clear: No Change in Voice: No Recommendations - Speech Evaluation, Impression/Plan Impression: Pt presents with upper and lower facial weakness. Inability to close left eye.Reduced wrinkles of forehead on left. Drooling when drinking from a cup, eliminated with straw drinking. Hearing is impaired. - Dysphagia Impressions/Plan Swallowing Skills: WFL *Silent aspiration: cannot be R/O at bedside Recommendations: Neuro Consult (r/o yoo's palsy. Hearing loss increased over last month according to pt. indication for MRI?), ENT Consult (otolaryngology/ audiological evaluation as out pt.to further assess etiology/severity of hearing loss./indication for amplification.), Other (straw usage. Place food on right side of face. Consider mgmt of left eye/eg pm ointment/taping? to reduce dryness sec to impaired left eye closure.) - Recommendations Diet Consistency: Regular Medication Administration: Whole with water Liquids: Thin Liquids
--- NOTE | 2016-04-18 15:45 | PN ---
Progress Note, Physician Chief Complaint: Suggestion of facial droop CT of head reveals old infarct No residual motor deficit History of Present Illness: Patient was seen and examined. Awake and alert. Chart was reviewed Denies chest pain, SOB or palpitation Patient remains in sinus rhythm Head CT report 2 days ago noted. Drug screen reveals (+) ecstasy, metabolites pending - Current Medication List Current Medications: Active Medications Aspirin (Asa -) 81 mg PO DAILY [facility] Last Admin: 04/18/16 10:54 Dose: 81 mg Bupropion HCl (Wellbutrin -) 75 mg PO DAILY [facility] Last Admin: 04/18/16 10:54 Dose: 75 mg Metoprolol Succinate (Toprol Xl -) 25 mg PO DAILY [facility] Last Admin: 04/18/16 10:54 Dose: 25 mg Venlafaxine HCl (Effexor Xr -) 225 mg PO BID [facility] Last Admin: 04/18/16 10:54 Dose: 225 mg - Objective Vital Signs: Vital Signs Temperature 98.5 F 04/18/16 14:00 Pulse Rate 66 04/18/16 14:00 Respiratory Rate 20 04/18/16 14:00 Blood Pressure 112/68 04/18/16 14:00 O2 Sat by Pulse Oximetry (%) 97 04/18/16 09:00 Neck: Yes: Supple Cardiovascular: Yes: Regular Rate and Rhythm, S1, S2 Respiratory: Yes: CTA Bilaterally Gastrointestinal: Yes: Normal Bowel Sounds, Soft. No: Tenderness Edema: No Neurological: Yes: Facial Droop Additional Findings/Remarks: - Review of Systems Constitutional: denies: Fever. denies: Chills Cardiovascular: denies: Chest Pain, Palpitations, Shortness of Breath Respiratory: denies: Cough, Hemoptysis, Orthopnea, PND Gastrointestinal: denies: Abdominal Pain. denies: Diarrhea, Melena, Nausea, Rectal Bleeding, Vomiting Genitourinary: denies: Dysuria Neurological: denies: Dizziness, Headache, Seizure, Syncope Labs: CBC, BMP 04/17/16 06:20 04/18/16 05:55 INR, PTT INR 1.10 (0.82-1.09) 04/16/16 17:23 Problem List - Problems (1) Gait disturbance Code(s): R26.9 - UNSPECIFIED ABNORMALITIES OF GAIT AND MOBILITY (2) Hyponatremia Code(s): E87.1 - HYPO-OSMOLALITY AND HYPONATREMIA (3) Paroxysmal atrial fibrillation Code(s): I48.0 - PAROXYSMAL ATRIAL FIBRILLATION (4) Orthostatic hypotension Code(s): I95.1 - ORTHOSTATIC HYPOTENSION Assessment/Plan 1. Paroxysmal atrial fibrillation now in sinus rhythm - [id number] score may be 2 in view of old infarct on head CT and current possible facial droop 2. Gait disturbance 3. Hyponatremia - improving 4. Orthostatic hypotension PLAN: 1. Transthoracic echocardiography to assess LV and valvular function 2. In view of current finding, patient recommended Eliquis 5 mg BID and Neurology consultation was requested 3. Continue Toprol XL 4. Monitor Na level. Gentle hydration and monitor orthostasis Further plans are to follow Farhad Patton MD
[2016-04-18] MEDS ORDERED: PT OWN MED DRAWER 7, Y5N ONE (21:25)
--- NOTE | 2016-04-18 21:51 | EKG ---
Test Reason : Blood Pressure : / mmHG Vent. Rate : 061 BPM Atrial Rate : 061 BPM P-R Int : 158 ms QRS Dur : 106 ms QT Int : 450 ms P-R-T Axes : 056 091 040 degrees QTc Int : 453 ms NORMAL SINUS RHYTHM RIGHTWARD AXIS BORDERLINE ECG WHEN COMPARED WITH ECG OF 16-APR-2016 17:33, SINUS RHYTHM HAS REPLACED ATRIAL FIBRILLATION VENT. RATE HAS DECREASED BY 60 BPM Confirmed by FABRICIO HIGHTOWER, PAUL ([id number]) on 04/18/2016 9:50:38 PM Referred By: Confirmed By:PAUL REGALADO MD
[2016-04-18] MEDS: APIXABAN 5 MG TABLET PO SCH (21:52)
--- NOTE | 2016-04-18 21:52 | EKG ---
Test Reason : Blood Pressure : / mmHG Vent. Rate : 121 BPM Atrial Rate : 110 BPM P-R Int : 000 ms QRS Dur : 112 ms QT Int : 378 ms P-R-T Axes : 000 085 043 degrees QTc Int : 536 ms ATRIAL FIBRILLATION WITH RAPID VENTRICULAR RESPONSE RIGHTWARD AXIS NONSPECIFIC ST AND T WAVE ABNORMALITY ABNORMAL ECG NO PREVIOUS ECGS AVAILABLE Confirmed by PAUL REGALADO MD ([id number]) on 04/18/2016 9:52:00 PM Referred By: Confirmed By:PAUL REGALADO MD
--- NOTE | 2016-04-19 08:37 | PN ---
Teaching Attending Note Name of Resident: Ambar Cruz ATTENDING PHYSICIAN STATEMENT I saw and evaluated the patient. I reviewed the resident's note and discussed the case with the resident. I agree with the resident's findings and plan as documented. Patient is unsteady on his feet. Almost fell when he stood up. Vital Signs Temperature 97.5 F L 04/19/16 06:00 Pulse Rate 57 L 04/19/16 06:00 Respiratory Rate 18 04/19/16 06:00 Blood Pressure 120/72 04/19/16 06:00 O2 Sat by Pulse Oximetry (%) 96 04/18/16 21:00 CBCD WBC 9.3 K/mm3 (4.0-10.0) 04/17/16 06:20 RBC 4.27 M/mm3 (4.00-5.60) 04/17/16 06:20 Hgb 13.6 GM/dL (11.7-16.9) 04/17/16 06:20 Hct 39.0 % (35.4-49) 04/17/16 06:20 MCV 91.3 fl (80-96) 04/17/16 06:20 MCHC 34.8 g/dl (32.0-35.9) 04/17/16 06:20 RDW 13.1 % (11.9-15.9) 04/17/16 06:20 Plt Count 199 K/MM3 (134-434) 04/17/16 06:20 MPV 8.7 fl (7.5-11.1) 04/17/16 06:20 CMP Sodium 136 mmol/L (136-145) 04/18/16 05:55 Potassium 3.5 mmol/L (3.5-5.1) 04/18/16 05:55 Chloride 98 mmol/L (98-107) 04/18/16 05:55 Carbon Dioxide 31 mmol/L (21-32) 04/18/16 05:55 Anion Gap 7 (8-16) L 04/18/16 05:55 BUN 17 mg/dL (7-18) 04/18/16 05:55 Creatinine 0.9 mg/dL (0.7-1.3) 04/18/16 05:55 Creat Clearance w eGFR > 60 (>60) 04/18/16 05:55 Random Glucose 83 mg/dL (74-106) 04/18/16 05:55 Calcium 8.0 mg/dL (8.5-10.1) L 04/18/16 05:55 Total Bilirubin 0.7 mg/dL (0.2-1.0) D 04/18/16 05:55 AST 20 U/L (15-37) 04/18/16 05:55 ALT 23 U/L (12-78) 04/18/16 05:55 Alkaline Phosphatase 71 U/L (45-117) 04/18/16 05:55 Total Protein 6.3 g/dl (6.4-8.2) L 04/18/16 05:55 Albumin 3.3 g/dl (3.4-5.0) L 04/18/16 05:55 CARDIAC ENZYMES Creatine Kinase 205 IU/L (39-308) D 04/17/16 06:20 Troponin I 0.02 ng/ml (0.00-0.05) 04/17/16 06:20 Home Medications Medication Instructions Recorded Venlafaxine HCl [Effexor -] 225 mg PO BID 08/31/14 Bupropion HCl [Wellbutrin -] 75 mg PO DAILY 04/16/16 Current Medications Generic Name Dose Route Start Last Admin Trade Name Freq PRN Reason Stop Dose Admin Apixaban 5 mg 04/18/16 22:00 04/18/16 21:52 Eliquis - PO 5 mg BID [facility] Administration Bupropion HCl 75 mg 04/17/16 10:00 04/18/16 10:54 Wellbutrin - PO 75 mg DAILY [facility] Administration Metoprolol Succinate 25 mg 04/16/16 19:30 04/18/16 10:54 Toprol Xl - PO 25 mg DAILY [facility] Administration Venlafaxine HCl 225 mg 04/16/16 22:00 04/18/16 21:52 Effexor Xr - PO 225 mg BID [facility] Administration CT of the head: Left anterior frontal 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 Mild chronic sinusitis ASSESSMENT/PLAN: Patient is a 65 yo M, with PMHx of depression and anxiety was sent in by his psychiatrist because of unstable gait and found to have a fib. 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 Neuro consult to evaluate further. ordered MRI for further evaluation. # New onset afib with rate controlled on Toprol XL 25mg po daily s/p cardiazem in ED. started on metoprolol xl 25mg po daily ;[id number] SCORE 2 patient was started on Eliquis 5mg po bid for anticoagulation as per [employer] member other ranks, continue tele, vitals ; carotid duplex, neuro consult to see the patient, ordered MRI as per neuro.Discussed with neuro ewelina see the patient. # s/p Hyponatremia improved continue IVF ; s/p acute dehydration, IVF 0.9NS continue for 1 more liter. # s/p Acute dehydration ;IVF at 125cc/hr #s/p Acute Hypokalemia IVF with KCL 40meq at 125cc/hr # s/p Fall could be due to postural hypotension, due to dehydration , hyponatremia , a fib; started on IV fluid NS 75 ml/hr; physical therapy evaluation; fall risk precaution # Hx of Depression/ anxiety continue home meds needs to be adjusted . psych.consult to evaluate for cutting down the dose since looks very sluggish # h/o chronic tinnitus follow up with [facility] an out patient ;ENT follow up as an out patient DVT px: scd, physical therapy
[2016-04-19] MEDS ORDERED: PT OWN MED DRAWER 7, Y5N ONE ×2 (09:44→21:07)
[2016-04-19] MEDS: METOPROLOL SUCCINATE 25 MG TAB.SR.24H (FP) PO SCH (09:46)
[2016-04-19] MEDS: VENLAFAXINE HCL 75 MG E.R. CAPSULES (FP) PO SCH ×2 (09:46→21:11)
[2016-04-19] MEDS: APIXABAN 5 MG TABLET PO SCH ×2 (09:46→21:11)
[2016-04-19] MEDS: buPROPion HCL 75 MG TABLET PO SCH (09:47)
--- NOTE | 2016-04-19 10:46 | PN ---
Progress Note, Physician Chief Complaint: Suggestion of facial droop CT of head reveals old infarct and carotid Doppler reveals carotid plaques, but with no hemodynamically significant stenosis No residual motor deficit, but generalized weakness and unsteady gait is present History of Present Illness: Patient was seen and examined. Awake and alert. Chart was reviewed Denies chest pain, SOB or palpitation Patient remains in sinus rhythm Head CT report 2 days ago noted. Drug screen reveals (+) ecstasy, metabolites pending - Current Medication List Current Medications: Active Medications Apixaban (Eliquis -) 5 mg PO BID [facility] Last Admin: 04/19/16 09:46 Dose: 5 mg Bupropion HCl (Wellbutrin -) 75 mg PO DAILY [facility] Last Admin: 04/19/16 09:47 Dose: 75 mg Metoprolol Succinate (Toprol Xl -) 25 mg PO DAILY [facility] Last Admin: 04/19/16 09:46 Dose: 25 mg Venlafaxine HCl (Effexor Xr -) 225 mg PO BID [facility] Last Admin: 04/19/16 09:46 Dose: 225 mg - Objective Vital Signs: Vital Signs Temperature 97.5 F L 04/19/16 06:00 Pulse Rate 57 L 04/19/16 06:00 Respiratory Rate 18 04/19/16 06:00 Blood Pressure 120/72 04/19/16 06:00 O2 Sat by Pulse Oximetry (%) 96 04/18/16 21:00 Neck: Yes: Supple Cardiovascular: Yes: Regular Rate and Rhythm, S1, S2 Respiratory: Yes: CTA Bilaterally Gastrointestinal: Yes: Normal Bowel Sounds, Soft. No: Tenderness Edema: No Additional Findings/Remarks: - Review of Systems Constitutional: denies: Fever. denies: Chills Cardiovascular: denies: Chest Pain, Palpitations, Shortness of Breath Respiratory: denies: Cough, Hemoptysis, Orthopnea, PND Gastrointestinal: denies: Abdominal Pain. denies: Diarrhea, Melena, Nausea, Rectal Bleeding, Vomiting Genitourinary: denies: Dysuria Neurological: denies: Dizziness, Headache, Seizure, Syncope Labs: CBC, BMP 04/17/16 06:20 04/18/16 05:55 INR, PTT INR 1.10 (0.82-1.09) 04/16/16 17:23 - ....Imaging Ultrasound: Report Reviewed (Carotid Doppler) Problem List - Problems (1) Gait disturbance Code(s): R26.9 - UNSPECIFIED ABNORMALITIES OF GAIT AND MOBILITY (2) Hyponatremia Code(s): E87.1 - HYPO-OSMOLALITY AND HYPONATREMIA (3) Paroxysmal atrial fibrillation Code(s): I48.0 - PAROXYSMAL ATRIAL FIBRILLATION (4) Orthostatic hypotension Code(s): I95.1 - ORTHOSTATIC HYPOTENSION (5) Cerebrovascular disease Code(s): I67.9 - CEREBROVASCULAR DISEASE, UNSPECIFIED (6) Carotid stenosis Code(s): I65.29 - OCCLUSION AND STENOSIS OF UNSPECIFIED CAROTID ARTERY Qualifiers: Laterality: left Qualified Code(s): I65.22 - Occlusion and stenosis of left carotid artery Assessment/Plan 1. Paroxysmal atrial fibrillation now in sinus rhythm - [id number] score may be 2-3 in view of old infarct on head CT and current possible facial droop and carotid plaques 2. Gait disturbance 3. Hyponatremia - improving 4. Orthostatic hypotension PLAN: 1. Transthoracic echocardiography to assess LV and valvular function 2. In view of current finding, patient recommended Eliquis 5 mg BID and Neurology consultation was requested and pending 3. Continue Toprol XL as tolerated 4. Gentle hydration and monitor orthostasis 5. Gait training and physical therapy Further plans are to follow Farhad Patton MD
--- NOTE | 2016-04-19 16:45 | PN ---
Physical Exam: SUBJECTIVE: Patient seen and examined. He is complaining of feeling unsteady and left sided asymmetry. He denies weakness, sensation changes, numbness, vision problems, headache. OBJECTIVE: Vital Signs Period Temp Pulse Resp BP Sys/Nunez Pulse Ox Last 24 Hr 97.4 F-98.1 F 56-62 18-20 120-132/72-84 96-96 GENERAL: The patient is awake, alert, and fully oriented, in no acute distress. HEAD: Normal with no signs of trauma. EYES: PERRL, extraocular movements intact, sclera anicteric, conjunctiva clear. ENT: Ears normal, nares patent, oropharynx clear without exudates, moist mucous membranes. NECK: Trachea midline, full range of motion, supple. LUNGS: Breath sounds equal, clear to auscultation bilaterally, no wheezes, no crackles, no accessory muscle use. HEART: Regular rate and rhythm, S1, S2 without murmur, rub or gallop. ABDOMEN: Soft, nontender, nondistended, normoactive bowel sounds, no guarding, no rebound. EXTREMITIES:no edema. NEUROLOGICAL: Left sised face paralysis, left eye ptosis, no nasolabial fold on L side, no tongue deviation, motor 5/5, sensation unchanged, Romberg negative. Normal speech. PSYCH: Normal mood, normal affect, difficulty with comprehension. 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 Mild chronic sinusitis. ASSESSMENT/PLAN: Patient is a 65 yo M, with PMHx of depression and anxiety was sent in by his psychiatrist because of unstable gait and found to have a new onset a. fib. New onset afib on metoprol XL 25mg po daily s/p cardiazem in ED. AC started: Eliquis 5 mg BID started by Traveling Auditor ECHO ordered carotid ordered tele, vitals.cardiology consult appreciated , Left anterior frontal encephalomalacia possibly due to an old Infarct: 7mm focal low attenuation density in the left frontal lobe. neuro consult to see the patient, possible MRI as per neuro, ordered s/p Hyponatremia continue IVF ; Sodium improved s/p Acute dehydration ; IVF at 125cc/hr s/p Acute Hypokalemia IVF with KCL 40meq at 125cc/hr hx of Falls due to postural hypotension, due to dehydration , hyponatremia or a fib; ordered orthostatic vitals. started on IV physical therapy evaluation; fall risk precaution Hx of Depression/ anxiety continue home meds psychia h/o chronic tinnitus follow up with automotive service advisor as an out patient ;ENT follow up as an out patient DVT px: scds Eliquis 5 mg BID Disposition: Telemetry, no plan for dc yet Problem List - Problems (1) Gait disturbance Code(s): R26.9 - UNSPECIFIED ABNORMALITIES OF GAIT AND MOBILITY (2) New onset a-fib Code(s): I48.91 - UNSPECIFIED ATRIAL FIBRILLATION (3) Drug abuse Code(s): F19.10 - OTHER PSYCHOACTIVE SUBSTANCE ABUSE, UNCOMPLICATED (4) Hypokalemia Code(s): E87.6 - HYPOKALEMIA (5) Hyponatremia Code(s): E87.1 - HYPO-OSMOLALITY AND HYPONATREMIA Visit type - Emergency Visit Emergency Visit: Yes ED Registration Date: 04/16/16 Care time: The patient presented to the Emergency Department on the above date and was hospitalized for further evaluation of their emergent condition. - New Patient This patient is new to me today: Yes Date on this admission: 04/19/16 - Critical Care Critical Care patient: No - Discharge Referral Referred to [facility] Med P.C.: No
--- NOTE | 2016-04-19 18:11 | HP ---
Admitting History and Physical - Admission Chief Complaint: unstaedy gait History of Present Illness: 65 yo M, with past medical h/o depressiona and anxiety was sent in by his psychiatrist because of unstable gait. Patient states that he noticed a unstable gait x one week, last tuesday recalls MARTE and fever; he states he was walking and then he feels lightheaded and weakness in legs. He also reports that he had fall and hit his head. x 2-3 x/this past week; as per nurse , sister mentioned that his gait was never completely NL. states left facial drooling may have also started last week. HX of baseline wandering eye, occasional diplopia. denies drug use > 20 yrs, has used LSD in 1970's. denies ETOH. Denies any numbness and focal neurological deficit, chest pain, sob. no new RX. In ED patient diagnosed to have new onset a fib. History Source: Patient - Smoking History Smoking history: Current every day smoker Have you smoked in the past 12 months: Yes Aproximately how many cigarettes per day: 20 If you are a former smoker, when did you quit?: 04/12/16 - Alcohol/Substance Use Hx Alcohol Use: No Home Medications - Allergies Allergies/Adverse Reactions: Allergies Allergy/AdvReac Type Severity Reaction Status Date / Time No Known Allergies Allergy Verified 04/16/16 15:53 - Home Medications Home Medications: Ambulatory Orders Venlafaxine HCl [Effexor -] 225 mg PO BID 08/31/14 Bupropion HCl [Wellbutrin -] 75 mg PO DAILY 04/16/16 Review of Systems - Review of Systems Eyes: reports: Double Vision Physical Examination Vital Signs: Vital Signs Temperature 98.1 F 04/19/16 14:00 Pulse Rate 62 04/19/16 14:00 Respiratory Rate 20 04/19/16 14:00 Blood Pressure 131/73 04/19/16 14:00 O2 Sat by Pulse Oximetry (%) 96 04/19/16 09:00 Neurological: Yes: Other (awake, slo to respond, tangential; L eye exodeviated ( ?strabismus); left facial upper and lower face-appears peripheral; slight LUE drift, though hx of shoudler injury; no clear ataxia F T N ose or Heel to marino, reflexes tarce in LE, plantars down, gait -guarded caitiuous, romberg (-)) Labs: CBC, BMP 04/17/16 06:20 04/18/16 05:55 Imaging - Results Cat Scan: Report Reviewed, Image Reviewed (CT HEAd : left frontal encephalomalacia --old trauma vs infarct.) Ultrasound: Report Reviewed (Dopplers : no hemodynamic stenosis) Assessment/Plan subabute gait unsteadiness/ setting of new onset left facial pontine infarct to be considered though typically causes facial and contralateral hemiparesis--his slight drift appaers ipsilateral (left side) so maybe isolated L BELLs palsy, though this would not explain new gait issues. new onset AFIB -- Vascular RF, appreciate card input / dopplers WNL ? superimposed metabolic issues, low NA, improving now no new RX 's check MRI BRAIN , will decide if he needs LP check ESR, LYME, JER, A1c, B12 , ARIA he denies drug use --? extasy + result will follow Dr Fernando [phone]
--- NOTE | 2016-04-19 18:24 | CONSULT ---
Consult - text type - Consultation Consultation Note: Chief Complaint: unstaedy gait History of Present Illness: 65 yo M, with past medical h/o depressiona and anxiety was sent in by his psychiatrist because of unstable gait. Patient states that he noticed a unstable gait x one week, last tuesday recalls MARTE and fever; he states he was walking and then he feels lightheaded and weakness in legs. He also reports that he had fall and hit his head. x 2-3 x/this past week; as per nurse , sister mentioned that his gait was never completely NL. states left facial drooling may have also started last week. HX of baseline wandering eye, occasional diplopia. denies drug use > 20 yrs, has used LSD in 1970's. denies ETOH. Denies any numbness and focal neurological deficit, chest pain, sob. no new RX. In ED patient diagnosed to have new onset a fib. History Source: Patient - Smoking History Smoking history: Current every day smoker Have you smoked in the past 12 months: Yes Aproximately how many cigarettes per day: 20 If you are a former smoker, when did you quit?: 04/12/16 - Alcohol/Substance Use Hx Alcohol Use: No Home Medications - Allergies Allergies/Adverse Reactions: Allergies Allergy/AdvReac Type Severity Reaction Status Date / Time No Known Allergies Allergy Verified 04/16/16 15:53 - Home Medications Home Medications: Ambulatory Orders Venlafaxine HCl [Effexor -] 225 mg PO BID 08/31/14 Bupropion HCl [Wellbutrin -] 75 mg PO DAILY 04/16/16 Review of Systems - Review of Systems Eyes: reports: Double Vision Physical Examination Vital Signs: Vital Signs Temperature 98.1 F 04/19/16 14:00 Pulse Rate 62 04/19/16 14:00 Respiratory Rate 20 04/19/16 14:00 Blood Pressure 131/73 04/19/16 14:00 O2 Sat by Pulse Oximetry (%) 96 04/19/16 09:00 Neurological: Yes: Other (awake, slo to respond, tangential; L eye exodeviated ( ?strabismus); left facial upper and lower face-appears peripheral; slight LUE drift, though hx of shoulder injury; no clear ataxia F T N ose or Heel to marino, reflexes tarce in LE, plantars down, gait -guarded caitiuous, romberg (-)) Labs: CBC, BMP 04/17/16 06:20 04/18/16 05:55 Imaging - Results Cat Scan: Report Reviewed, Image Reviewed (CT HEAd : left frontal encephalomalacia --old trauma vs infarct.) Ultrasound: Report Reviewed (Dopplers : no hemodynamic stenosis) Assessment/Plan subabute gait unsteadiness/ setting of new onset left facial pontine infarct to be considered though typically causes facial and contralateral hemiparesis--his slight drift appaers ipsilateral (left side) so maybe isolated L BELLs palsy, though this would not explain new gait issues. new onset AFIB -- Vascular RF, appreciate card input / dopplers WNL ? superimposed metabolic issues, low NA, improving now no new RX 's check MRI BRAIN , will decide if he needs LP, doubt GBS (betito cheng usually ahs opthoplgia and his diplopia is old) check ESR, LYME, JER, A1c, B12 , ARIA he denies drug use --? extasy + result will follow Dr Fernando [phone]
--- NOTE | 2016-04-20 07:13 | PN ---
Progress Note, Physician Chief Complaint: Referred to review whether psychiatric medications are causing him to be sluggish. History of Present Illness: Client is 65 yo male admitted for cardiac monitoring post falls in the home, some dysrymthiasa present, reports unstable gait. Currently on Venlofaxine 225mg daily started 4 years ago and augmentated with wellbutrin 2 years ago. Client has no psychiartic admissions but clains to have "vague suicidal thiughts from 4th grade". - Current Medication List Current Medications: Active Medications Apixaban (Eliquis -) 5 mg PO BID [facility] Last Admin: 04/19/16 21:11 Dose: 5 mg Bupropion HCl (Wellbutrin -) 75 mg PO DAILY [facility] Last Admin: 04/19/16 09:47 Dose: 75 mg Metoprolol Succinate (Toprol Xl -) 25 mg PO DAILY [facility] Last Admin: 04/19/16 09:46 Dose: 25 mg Venlafaxine HCl (Effexor Xr -) 225 mg PO BID [facility] Last Admin: 04/19/16 21:11 Dose: 225 mg - Objective Vital Signs: Vital Signs Temperature 97 F L 04/20/16 01:59 Pulse Rate 56 L 04/20/16 01:59 Respiratory Rate 18 04/20/16 01:59 Blood Pressure 136/86 04/20/16 01:59 O2 Sat by Pulse Oximetry (%) 97 04/19/16 21:00 Constitutional: Yes: No Distress Eyes: Yes: Other Musculoskeletal: Yes: Other (l facial droop) Psychiatric: Yes: WNL, Alert, Oriented Labs: CBC, BMP 04/17/16 06:20 04/18/16 05:55 INR, PTT INR 1.10 (0.82-1.09) 04/16/16 17:23 Assessment/Plan Unlikeliky that Vellofaxine taper will affect his alertness. recommend that taper is considered [facility] [id number].
--- NOTE | 2016-04-20 07:23 | PN ---
Mental Health Exam - Mental Status Exam Alert and Oriented to: Time, Place, Person Cognitive Function: Good (well read, high cognition but slower response currently. hard of hearing left side.) Patient Appearance: Bizarre (long whit bwarded, unkempt hair. ) Mood: Expansive, Hopeful Affect: Appropriate Patient Behavior: Talkative, Cooperative Speech Pattern: Clear, Appropriate Voice Loudness: Mildly Loud Thought Process: Intact, Goal Oriented Thought Disorder: Not Present Hallucinations: None Suicidal Ideation: Past, No Plan Homicidal Ideation: None ("my sidster is very controlling, wants power of supervisor building maintenance") Insight/Judgement: Good Sleep: Well Appetite: Fair Muscle strength/Tone: Normal Gait/Station: Deferred (in bed evaluation.)
--- NOTE | 2016-04-20 08:29 | PN ---
Progress Note (short form) - Note Progress Note: Chief Complaint: Events noted, notes reviewed, facial drop is persistent, denies any chest pain or dyspnea, denies palpitations, await brain MRI History of Present Illness: See and examined on telemetry. Events noted, notes reviewed, facial droop is persistent, denies any chest pain or dyspnea, denies palpitations, await brain MRI Echocardiography revealed normal LV size and function - Current Medication List Current Medications Apixaban (Eliquis -) 5 mg PO BID [facility] Last Admin: 04/19/16 21:11 Dose: 5 mg Bupropion HCl (Wellbutrin -) 75 mg PO DAILY [facility] Last Admin: 04/19/16 09:47 Dose: 75 mg Metoprolol Succinate (Toprol Xl -) 25 mg PO DAILY [facility] Last Admin: 04/19/16 09:46 Dose: 25 mg Venlafaxine HCl (Effexor Xr -) 225 mg PO BID [facility] Last Admin: 04/19/16 21:11 Dose: 225 mg Review of Systems - Review of Systems Constitutional: denies: Chills, Fever Cardiovascular: As noted above Respiratory: denies: Cough or Sputum Production Gastrointestinal: denies: Nausea, Vomiting, Diarrhea, Constipation or Abdominal Pain Musculoskeletal: No symptoms reported Neurological: As noted above - Objective Vital Signs: Last Vital Signs Temp Pulse Resp BP Pulse Ox 97.2 F L 59 L 18 154/91 97 04/20/16 05:00 04/20/16 05:00 04/20/16 05:00 04/20/16 05:00 04/19/16 21:00 Neck: Supple Negative JVD Cardiovascular: S1 S2 Regular Rate and Rhythm Respiratory: Clear to A&P Bilaterally Gastrointestinal: Soft Benign Normal Bowel Sounds Ext: No Edema Labs: CBC, BMP 04/17/16 06:20 04/18/16 05:55 Assessment/Plan ASSESSMENT: 1. Paroxysmal atrial fibrillation currently in sinus rhythm [id number] score of 3 on NOAC's 2. HTN 3. History of orthostatic hypotension 4. Gait instability, etiology to be determined, possible CVA residual 5. Persistent facial droop, new CVa vs. Mendez's palsy PLAN: 1. Continue NOAC's/Eliquis indefinitely unless it is absolutely contraindicated 2. Continue Toprol XL 3. Addition of ACEI or ARBS 4. Await brain MRI 5. Initiate PT 6. Further recommendations pending brain MRI Jose Enamorado MD
[2016-04-20] MEDS ORDERED: PT OWN MED DRAWER 7, Y5N ONE ×2 (09:02→21:01)
[2016-04-20] MEDS: buPROPion HCL 75 MG TABLET PO SCH (09:40)
[2016-04-20] MEDS: METOPROLOL SUCCINATE 25 MG TAB.SR.24H (FP) PO SCH (09:40)
[2016-04-20] MEDS: APIXABAN 5 MG TABLET PO SCH ×2 (09:40→21:04)
[2016-04-20] MEDS: VENLAFAXINE HCL 75 MG E.R. CAPSULES (FP) PO SCH ×2 (09:40→21:04)
--- NOTE | 2016-04-20 11:08 | PN ---
Progress Note, LOCAL SALES MANAGER - Note Progress Note: Selected Entries 04/19/16 04/19/16 04/19/16 02:00 06:00 10:00 Breakfast Diet Tolerated Lunch Supper Temperature 97.4 F L 97.5 F L 97.6 F 04/19/16 04/19/16 04/19/16 12:31 14:00 18:40 Breakfast 100% Diet Tolerated Lunch 75% Supper 75% Temperature 98.1 F 98.1 F 04/19/16 04/20/16 04/20/16 21:00 01:59 05:00 Breakfast Diet Tolerated Lunch Supper Temperature 98.2 F 97 F L 97.2 F L 04/20/16 09:46 Breakfast 100% Diet Tolerated Well Lunch Supper Temperature Neurology note appreciated. Performance unchanged since my last visit on 05/19. Tolerating diet. Arousable but c/o feeling sleepy. Monitor PO tolerance. w/u and MRI pending.
--- NOTE | 2016-04-20 15:51 | PN ---
Teaching Attending Note Name of Resident: Ambar Cruz ATTENDING PHYSICIAN STATEMENT I saw and evaluated the patient. I reviewed the resident's note and discussed the case with the resident. I agree with the resident's findings and plan as documented. Patient is comfortable with no acute distress. Going for MRI tonight. Vital Signs Temperature 98.1 F 04/20/16 14:42 Pulse Rate 64 04/20/16 14:42 Respiratory Rate 20 04/20/16 14:42 Blood Pressure 111/71 04/20/16 14:42 O2 Sat by Pulse Oximetry (%) 97 04/20/16 09:00 CBCD WBC 9.3 K/mm3 (4.0-10.0) 04/17/16 06:20 RBC 4.27 M/mm3 (4.00-5.60) 04/17/16 06:20 Hgb 13.6 GM/dL (11.7-16.9) 04/17/16 06:20 Hct 39.0 % (35.4-49) 04/17/16 06:20 MCV 91.3 fl (80-96) 04/17/16 06:20 MCHC 34.8 g/dl (32.0-35.9) 04/17/16 06:20 RDW 13.1 % (11.9-15.9) 04/17/16 06:20 Plt Count 199 K/MM3 (134-434) 04/17/16 06:20 MPV 8.7 fl (7.5-11.1) 04/17/16 06:20 CMP Sodium 136 mmol/L (136-145) 04/18/16 05:55 Potassium 3.5 mmol/L (3.5-5.1) 04/18/16 05:55 Chloride 98 mmol/L (98-107) 04/18/16 05:55 Carbon Dioxide 31 mmol/L (21-32) 04/18/16 05:55 Anion Gap 7 (8-16) L 04/18/16 05:55 BUN 17 mg/dL (7-18) 04/18/16 05:55 Creatinine 0.9 mg/dL (0.7-1.3) 04/18/16 05:55 Creat Clearance w eGFR > 60 (>60) 04/18/16 05:55 Random Glucose 83 mg/dL (74-106) 04/18/16 05:55 Calcium 8.0 mg/dL (8.5-10.1) L 04/18/16 05:55 Total Bilirubin 0.7 mg/dL (0.2-1.0) D 04/18/16 05:55 AST 20 U/L (15-37) 04/18/16 05:55 ALT 23 U/L (12-78) 04/18/16 05:55 Alkaline Phosphatase 71 U/L (45-117) 04/18/16 05:55 Total Protein 6.3 g/dl (6.4-8.2) L 04/18/16 05:55 Albumin 3.3 g/dl (3.4-5.0) L 04/18/16 05:55 CARDIAC ENZYMES Creatine Kinase 205 IU/L (39-308) D 04/17/16 06:20 Troponin I 0.02 ng/ml (0.00-0.05) 04/17/16 06:20 Current Medications Generic Name Dose Route Start Last Admin Trade Name Arnaldo PRN Reason Stop Dose Admin Apixaban 5 mg 04/18/16 22:00 04/20/16 09:40 Eliquis - PO 5 mg BID AMNA Administration Bupropion HCl 75 mg 04/17/16 10:00 04/20/16 09:40 Wellbutrin - PO 75 mg DAILY AMNA Administration Metoprolol Succinate 25 mg 04/16/16 19:30 04/20/16 09:40 Toprol Xl - PO 25 mg DAILY AMNA Administration Venlafaxine HCl 225 mg 04/16/16 22:00 04/20/16 09:40 Effexor Xr - PO 225 mg BID AMNA Administration Home Medications Medication Instructions Recorded Venlafaxine HCl [Effexor -] 225 mg PO BID 08/31/14 Bupropion HCl [Wellbutrin -] 75 mg PO DAILY 04/16/16 Laboratory Tests 04/17/16 04/17/16 14:00 14:00 Opiates Screen Negative Methadone Screen Negative Barbiturate Screen Negative Phencyclidine Screen Negative Ur Amphetamines Screen Negative MDMA (Ecstasy) Screen Positive MDMA & Metabolite Pending Benzodiazepines Screen Negative Cocaine Screen Negative U Marijuana (THC) Screen Negative Neuro: Left facial droop , Unsteady on his feet. Carotid Dopler: Impression: Intimal thickening in the distal common carotid artery and at the bifurcation with a questionable small soft plaque at the left common carotid bifurcation without evidence of hemodynamically significant stenosis, bilaterally. Follow-up carotid Doppler ultrasound would be helpful for further evaluation. 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 Mild chronic sinusitis ASSESSMENT/PLAN: Patient is a 65 yo M, with PMHx of depression and anxiety was sent in by his psychiatrist because of unstable gait and found to have a fib. 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 Neuro consult Appreciated ordered MRI for the brain, going tonight for further evaluation. Old stroke vs Mendez's palsy ; Unsteady on his feet. # New onset afib with rate controlled on Toprol XL 25mg po daily s/p cardiazem in ED. started on metoprolol xl 25mg po daily ;[id number] SCORE 3 patient was started on Eliquis 5mg po bid for anticoagulation as per metal and plastic heater, continue tele, vitals ; neuro consult appreciated , ordered MRI as per neuro. carotid duplex :7 mm focal low-attenuation density in the left temporal lobe along the inferior margin of the left basal ganglia that may represent a choroid fissure cyst versus focal old infarct. # s/p Hyponatremia improved continue IVF ; s/p acute dehydration, IVF 0.9NS x 2 liter. 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 since patient is so unsteady on his feet.
--- NOTE | 2016-04-20 17:09 | CONSULT ---
Consult - text type - Consultation Consultation Note: Patient Name: CHRISTIE TREADWELL History of Present Illness: 65 yo M, with past medical h/o depressiona and anxiety was sent in by his psychiatrist because of unstable gait. Patient states that he noticed a unstable gait x one week, last tuesday recalls MARTE and fever; he states he was walking and then he feels lightheaded and weakness in legs. He also reports that he had fall and hit his head. x 2-3 x/this past week; as per nurse , sister mentioned that his gait was never completely NL. states left facial drooling may have also started last week. HX of baseline wandering eye, occasional diplopia. denies drug use > 20 yrs, has used LSD in 1970's. denies ETOH. Denies any numbness and focal neurological deficit, chest pain, sob. no new RX. In ED patient diagnosed to have new onset a fib. FU : no new chnages, left facial perisists, di walk up /dwon [place], but feels off awaiting MRI History Source: Patient - Smoking History Smoking history: Current every day smoker Have you smoked in the past 12 months: Yes Aproximately how many cigarettes per day: 20 If you are a former smoker, when did you quit?: 04/12/16 - Alcohol/Substance Use Hx Alcohol Use: No Home Medications - Allergies Allergies/Adverse Reactions: Allergies Allergy/AdvReac Type Severity Reaction Status Date / Time No Known Allergies Allergy Verified 04/16/16 15:53 - Home Medications Home Medications: Ambulatory Orders Venlafaxine HCl [Effexor -] 225 mg PO BID 08/31/14 Bupropion HCl [Wellbutrin -] 75 mg PO DAILY 04/16/16 Review of Systems - Review of Systems Eyes: reports: Double Vision Physical Examination Vital Signs: Vital Signs Temperature 98.1 F 04/19/16 14:00 Pulse Rate 62 04/19/16 14:00 Respiratory Rate 20 04/19/16 14:00 Blood Pressure 131/73 04/19/16 14:00 O2 Sat by Pulse Oximetry (%) 96 04/19/16 09:00 Neurological: Yes: Other (awake, slo to respond, tangential; L eye exodeviated ( ?strabismus); left facial upper and lower face-appears peripheral; slight LUE drift, though hx of shoulder injury; no clear ataxia F T N ose or Heel to marino, reflexes tarce in LE, plantars down, gait -guarded caitiuous, romberg (-)) Labs: Imaging - Results Cat Scan: Report Reviewed, Image Reviewed (CT HEAd : left frontal encephalomalacia --old trauma vs infarct.) Ultrasound: Report Reviewed (Dopplers : no hemodynamic stenosis) Assessment/Plan subabute gait unsteadiness/ setting of new onset left facial pontine infarct to be considered though typically causes facial and contralateral hemiparesis-- so maybe isolated L BELLs palsy, though this would not explain new gait issues. awaiting MRI BRAIN and blood work new onset AFIB -- Vascular RF, appreciate card input / dopplers WNL ? superimposed metabolic issues, low NA, improving now ESR, LYME, JER, A1c, B12 , ARIA -P will follow Dr Fernando [phone]
--- NOTE | 2016-04-20 18:40 | PN ---
Physical Exam: SUBJECTIVE: Patient seen and examined. He is feeling good today. he still feels unsteady when walking. Denies vision problems, dizziness, chest pain, palpitations. OBJECTIVE: Vital Signs Period Temp Pulse Resp BP Sys/Nunez Pulse Ox Last 24 Hr 97 F-98.2 F 56-71 18-20 100-154/70-91 97-97 GENERAL: The patient is awake, alert, and fully oriented, in no acute distress. HEAD: Normal with no signs of trauma. EYES: PERRL, extraocular movements intact, sclera anicteric, conjunctiva clear. ENT: Ears normal, nares patent, oropharynx clear without exudates, moist mucous membranes. NECK: Trachea midline, full range of motion, supple. LUNGS: Breath sounds equal, clear to auscultation bilaterally, no wheezes, no crackles, no accessory muscle use. HEART: Regular rate and rhythm, S1, S2 without murmur, rub or gallop. ABDOMEN: Soft, nontender, nondistended, normoactive bowel sounds, no guarding, no rebound. EXTREMITIES:no edema. NEUROLOGICAL: Left sided face paralysis, left eye ptosis, no nasolabial fold on L side, no tongue deviation, motor 5/5, sensation unchanged, Romberg negative. Normal speech. PSYCH: Normal mood, normal affect, difficulty with comprehension. SKIN: Warm, dry, normal turgor, no rashes or lesions noted Laboratory Results - last 24 hr 04/19/16 04/20/16 04/20/16 20:30 05:35 05:35 ESR 5 Hemoglobin A1c % 6.1 H Vitamin B12 322 Active Medications Generic Name Dose Route Start Last Admin Trade Name Arnaldo PRN Reason Stop Dose Admin Apixaban 5 mg 04/18/16 22:00 04/20/16 09:40 Eliquis - PO 5 mg BID AMNA Administration Bupropion HCl 75 mg 04/17/16 10:00 04/20/16 09:40 Wellbutrin - PO 75 mg DAILY AMNA Administration Metoprolol Succinate 25 mg 04/16/16 19:30 04/20/16 09:40 Toprol Xl - PO 25 mg DAILY AMNA Administration Venlafaxine HCl 225 mg 04/16/16 22:00 04/20/16 09:40 Effexor Xr - PO 225 mg BID AMNA Administration Carotid Dopler: Impression: Intimal thickening in the distal common carotid artery and at the bifurcation with a questionable small soft plaque at the left common carotid bifurcation without evidence of hemodynamically significant stenosis, bilaterally. Follow-up carotid Doppler ultrasound would be helpful for further evaluation CT of the head: Left anterior frontal 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 Mild chronic sinusitis. ASSESSMENT/PLAN: Patient is a 65 yo M, with PMHx of depression and anxiety was sent in by his psychiatrist because of unstable gait and found to have a new onset a. fib. New onset afib on metoprol XL 25mg po daily s/p cardiazem in ED. AC started: Eliquis 5 mg BID started by Crop Puller ECHO ordered carotid study done tele, vitals.cardiology consult appreciated Left anterior frontal encephalomalacia possibly due to an old Infarct: 7mm focal low attenuation density in the left frontal lobe. neuro consult to see the patient, waiting for MRI of the brain w/o contrast as per neuro s/p Hyponatremia continue IVF ; Sodium improved s/p Acute dehydration ; IVF at 125cc/hr s/p Acute Hypokalemia IVF with KCL 40meq at 125cc/hr hx of Falls due to postural hypotension, due to dehydration , hyponatremia or a fib; ordered orthostatic vitals. started on IV physical therapy evaluation; fall risk precaution Hx of Depression/ anxiety continue home meds psychiatry consulted h/o chronic tinnitus follow up with dance critic as an out patient ;ENT follow up as an out patient DVT px: scds Eliquis 5 mg BID Disposition: Telemetry, no plan for dc yet Problem List - Problems (1) Gait disturbance Code(s): R26.9 - UNSPECIFIED ABNORMALITIES OF GAIT AND MOBILITY (2) New onset a-fib Code(s): I48.91 - UNSPECIFIED ATRIAL FIBRILLATION (3) Drug abuse Code(s): F19.10 - OTHER PSYCHOACTIVE SUBSTANCE ABUSE, UNCOMPLICATED (4) Hypokalemia Code(s): E87.6 - HYPOKALEMIA (5) Hyponatremia Code(s): E87.1 - HYPO-OSMOLALITY AND HYPONATREMIA Visit type - Emergency Visit Emergency Visit: Yes ED Registration Date: 04/16/16 Care time: The patient presented to the Emergency Department on the above date and was hospitalized for further evaluation of their emergent condition. - New Patient This patient is new to me today: No - Critical Care Critical Care patient: No - Discharge Referral Referred to [facility] Med P.C.: No
[2016-04-21 07:36] LABS: BASOPHIL 0.9 % (0-2.0); EOSINOPHIL 3.3 % (0-4.5); MCHC 34.5 g/dl (32.0-35.9); MEAN CELL VOLUME 92.6 fl (80-96); MEAN PLT VOLUME 8.5 fl (7.5-11.1); PLATELET COUNT 240 K/MM3 (134-434); RDW 13.3 % (11.9-15.9); WHITE BLOOD COUNT 9.7 K/mm3 (4.0-10.0)
[2016-04-21 08:34] LABS: ALBUMIN 3.5 g/dl (3.4-5.0); ALK PHOS 75 U/L (45-117); ANION GAP 9 (8-16); BILIRUBIN,TOTAL 0.5 mg/dL (0.2-1.0); CALCIUM 8.8 mg/dL (8.5-10.1); CO2 32 mmol/L (21-32); CREATININE 0.8 mg/dL (0.7-1.3); GLUCOSE,RANDOM 74 mg/dL (74-106); SGOT/AST 13 U/L (15-37); SGPT/ALT 23 U/L (12-78); TOT PROT 6.9 g/dl (6.4-8.2)
[2016-04-21] MEDS ORDERED: PT OWN MED DRAWER 7, Y5N ONE (08:52)
[2016-04-21] MEDS: METOPROLOL SUCCINATE 25 MG TAB.SR.24H (FP) PO SCH (09:17)
[2016-04-21] MEDS: APIXABAN 5 MG TABLET PO SCH (09:17)
[2016-04-21] MEDS: buPROPion HCL 75 MG TABLET PO SCH (09:17)
[2016-04-21] MEDS: VENLAFAXINE HCL 75 MG E.R. CAPSULES (FP) PO SCH (09:17)
[2016-04-21] MEDS ORDERED: CYANOCOBALAMIN 1,000 MCG TABLET (FP) PO SCH (10:00)
[2016-04-21] MEDS ORDERED: predniSONE 10 MG TABLET (UD) PO SCH (10:00)
--- NOTE | 2016-04-21 11:05 | PN ---
Progress Note (short form) - Note Progress Note: HPI : 65 yo M, with past medical h/o depressiona and anxiety was sent in by his psychiatrist because of unstable gait. Patient states that he noticed a unstable gait x one week, last tuesday recalls MARTE and fever; he states he was walking and then he feels lightheaded and weakness in legs. He also reports that he had fall and hit his head. x 2-3 x/this past week; as per nurse , sister mentioned that his gait was never completely NL. states left facial drooling may have also started last week. HX of baseline wandering eye, occasional diplopia. denies drug use > 20 yrs, has used LSD in 1970's. denies ETOH. Denies any numbness and focal neurological deficit, chest pain, sob. no new RX. In ED patient diagnosed to have new onset a fib. TODAY FU : gait better MRI reviewed: left frontal encephalomalacia , no new stroke events left facial perisists feels close to baseline History Source: Patient - Smoking History Smoking history: Current every day smoker Have you smoked in the past 12 months: Yes Aproximately how many cigarettes per day: 20 If you are a former smoker, when did you quit?: 04/12/16 - Alcohol/Substance Use Hx Alcohol Use: No Home Medications - Allergies Allergies/Adverse Reactions: Allergies Allergy/AdvReac Type Severity Reaction Status Date / Time No Known Allergies Allergy Verified 04/16/16 15:53 - Home Medications Home Medications: Ambulatory Orders Venlafaxine HCl [Effexor -] 225 mg PO BID 08/31/14 Bupropion HCl [Wellbutrin -] 75 mg PO DAILY 04/16/16 Review of Systems - Review of Systems Eyes: reports: Double Vision Physical Examination Vital Signs: stable Neurological: Yes: Other (awake, slo to respond, tangential; L eye exodeviated ( ?strabismus); left facial upper and lower face-appears peripheral; slight LUE drift, though hx of shoulder injury; no clear ataxia F T N ose or Heel to marino, reflexes tarce in LE, plantars down, gait -guarded caitiuous, romberg (-)) Labs: Imaging MRI BRAIN reviewed- left frontal encepohalomalcia - Results Cat Scan: Report Reviewed, Image Reviewed (CT HEAd : left frontal encephalomalacia --old trauma vs infarct.) Ultrasound: Report Reviewed (Dopplers : no hemodynamic stenosis) Assessment/Plan subabute gait unsteadiness/ setting of new onset left facial and afib MRI --no new ischemic events --gait improving, close to baseline , likley metabolic /deconditioning --[place] palsy -can give taper prednisone 60mg x 2days , then taper --new onset AFIB -- Vascular RF, appreciate card input / dopplers WNL; agree with EMY resendiz for DC from neuro stand point Dr Fernando [phone]
--- NOTE | 2016-04-21 11:06 | PN ---
Progress Note, Physician History of Present Illness: Remains in sinus rhythm since 04/18, continued facial droop c/w Hemphill's palsy, gait disturbance improving. - Current Medication List Current Medications: Active Medications Apixaban (Eliquis -) 5 mg PO BID [facility] Last Admin: 04/21/16 09:17 Dose: 5 mg Bupropion HCl (Wellbutrin -) 75 mg PO DAILY [facility] Last Admin: 04/21/16 09:17 Dose: 75 mg Cyanocobalamin (Vitamin B12 -) 1,000 mcg PO DAILY [facility] Metoprolol Succinate (Toprol Xl -) 25 mg PO DAILY [facility] Last Admin: 04/21/16 09:17 Dose: 25 mg Prednisone (Deltasone -) 30 mg PO DAILY [facility] Venlafaxine HCl (Effexor Xr -) 225 mg PO BID [facility] Last Admin: 04/21/16 09:17 Dose: 225 mg - Objective Vital Signs: Vital Signs Temperature 97.2 F L 04/21/16 06:00 Pulse Rate 57 L 04/21/16 06:00 Respiratory Rate 20 04/21/16 06:00 Blood Pressure 150/90 04/21/16 06:00 O2 Sat by Pulse Oximetry (%) 100 04/20/16 20:58 Constitutional: Yes: No Distress, Calm Neck: Yes: Supple Cardiovascular: Yes: Regular Rate and Rhythm Respiratory: Yes: Regular, CTA Bilaterally Gastrointestinal: Yes: Normal Bowel Sounds, Soft Edema: No Labs: CBC, BMP 04/21/16 05:35 04/21/16 05:35 INR, PTT INR 1.10 (0.82-1.09) 04/16/16 17:23 Problem List - Problems (1) Paroxysmal atrial fibrillation Code(s): I48.0 - PAROXYSMAL ATRIAL FIBRILLATION (2) Gait disturbance Code(s): R26.9 - UNSPECIFIED ABNORMALITIES OF GAIT AND MOBILITY (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 Paroxysmal atrial fibrillation currently in sinus rhythm [id number] score of 3 on NOAC's 2. HTN 3. History of orthostatic hypotension 4. Gait instability, h/o old stroke 5. Hemphill's palsy PLAN: 1. Continue Eliquis 5 bid 2. Continue Toprol XL 25 qd 3. Start losartan 25 qd 4. Initiate PT 5. Continue Prednisone taper
[2016-04-21 14:26] VITALS: BP 129/84; PULSE 57; TEMP 98
--- NOTE | 2016-04-21 14:35 | PN ---
Progress Note, VARIETY LATHE OPERATOR - Note Progress Note: Selected Entries 04/21/16 04/21/16 04/21/16 02:00 06:00 10:00 Breakfast Lunch Temperature 97 F L 97.2 F L 97.4 F L 04/21/16 04/21/16 11:40 14:26 Breakfast 100% Lunch 100% Temperature 98.0 F Laboratory Tests 04/21/16 05:35 WBC 9.7 Results of w/u noted. Neurology imp: Mendez's Palsy. Pt tolerating meals, best when placed on unaffected side and drinking from a straw.
--- NOTE | 2016-04-21 15:22 | PN ---
Teaching Attending Note Name of Resident: Ambar Cruz ATTENDING PHYSICIAN STATEMENT I saw and evaluated the patient. I reviewed the resident's note and discussed the case with the resident. I agree with the resident's findings and plan as documented. SUBJECTIVE: still has facial asymmetry , no fever or chills, no weakness or tingling in extremities. OBJECTIVE: NAD Cv : irreg irreg Lungs : CTAB Ext: no edema Neuro : L upper and lower facial droop, EOMI, round equal pupils , reactive to light . tongue at mid line strength 5/5 in upper and lower ext proximally sensation to light touch nl. ASSESSMENT AND PLAN: Patient is a 65 yo M, with PMHx of depression and anxiety was sent in by his psychiatrist because of unstable gait and found to have a fib and L upper and lower facial droop 1- L upper and lower facial droop, due to Mendez's palsy. Start prednisone course. MRI noted , possible old trauma . f/u with neuro as outpt 2- new onset A fib : cont eliqus and metorpolol start losartan 3- gait unsalability : multifactorial including Vit B12 def ( low nl level ) . can't check MMA here . start B12 supp. PT dispo : rehab today
--- NOTE | 2016-04-22 18:13 | DS ---
Physical Exam: SUBJECTIVE: Patient seen and examined. He is feeling good. He denies numbness, dizziness but is still concerned about his unsteadiness and weakness. OBJECTIVE: PHYSICAL EXAM GENERAL: The patient is awake, alert, and fully oriented, in no acute distress. HEAD: Normal with no signs of trauma. EYES: extraocular movements intact, sclera anicteric, conjunctiva clear. ENT: oropharynx clear without exudates, moist mucous membranes. NECK: Trachea midline, full range of motion, supple. LUNGS: Breath sounds equal, clear to auscultation bilaterally, no wheezes, no crackles, no accessory muscle use. HEART: Regular rate and rhythm, S1, S2 without murmur, rub or gallop. ABDOMEN: Soft, nontender, nondistended, normoactive bowel sounds, no guarding, no rebound. EXTREMITIES:no edema. NEUROLOGICAL: Left sided face paralysis, left eye ptosis, no nasolabial fold on L side, no tongue deviation, motor 5/5, sensation unchanged, Romberg negative. Normal speech. PSYCH: Normal mood, normal affect, difficulty with comprehension. SKIN: Warm, dry, normal turgor, no rashes or lesions noted LABS Laboratory Results - last 24 hr 04/17/16 04/20/16 04/20/16 14:00 05:35 05:35 MDMA & Metabolite Negative ARIA Screen Negative Lyme Screen IgG & IgM <0.91 Lyme IgM (Western Blot) Not Reportable HOSPITAL COURSE: Date of Admission:04/16/16 Date of Discharge: 04/22/16 Minutes to complete discharge: 50 Discharge Summary Reason For Visit: NEW ONSET OF AFIB Hospital Course: 65 yo M with a past medical h/o depression and anxiety was sent in by his psychiatrist because of unstable gait. Patient states that he noticed unstable gait x 3 days and facial asymmetry. He states he was walking and then he felt lightheaded and weakness in legs. He also reports that he had fall and hit his head. He denies neck stiffness, seizure, urine and stool incontinence. He states that he felt warm like having a fever and reports burning micturation and increase in frequency. Denies cough, runny nose, diarrhea. In ED patient diagnosed to have new onset a fib. Hospital course; New onset afib: he was given Cardizem in ED, later on metoprol XL 25mg po daily , started Eliquis, consulted software technical lead, ECHO done, carotid study: Intimal thickening in the distal common carotid artery and at the bifurcation with a questionable small soft plaque at the left common carotid bifurcation without evidence of hemodynamically significant stenosis, bilaterally. He was placed in telemetry, on cardiac monitoring. Recommended Losartan. Left facial droop/Left anterior frontal encephalomalacia: due to an old Infarct : CT head: 7mm focal low attenuation density in the left frontal lobe. neuro consulted, MRI of the brain w/o contrast showed old changes, possibly due to injury. We started Prednisone and taper as outpatient, f/u Neurology. We ordered PT and discharge the pt to temporary rehab. He was found to have Hyponatremia ; we continue IVF ; Sodium improved. Hypokalemia: IVF with KCL. Hx of Falls: orthostatic vitals were negative, B12 started Hx of Depression/ anxiety:continued home meds, psychiatry consulted h/o chronic tinnitus:follow up with wire sawyer as an out patient ;ENT follow up as an out patient Condition: Improved - Instructions Diet, Activity, Other Instructions: Please take your medications everyday. See your primary care physician in a week. Follow up with a Coal Shoveler, Neurologist in 2 weeks. Take prednisone everyday. Start with 60 mg for two days, 50 for 2 days, 40 for 2, 30 for 2, 20 for 2, 10 for 2 and then stop. If your symptoms worsen come back to Emergency Room as soon as possible. Referrals: [facility] [place] [Outside] Disposition: [facility]ENTIARY FACILITY - Home Medications Comprehensive Discharge Medication List: Ambulatory Orders Venlafaxine HCl [Effexor -] 225 mg PO BID 08/31/14 Bupropion HCl [Wellbutrin -] 75 mg PO DAILY 04/16/16 Apixaban [Eliquis -] 5 mg PO BID #60 tablet 04/21/16 Cyanocobalamin [Vitamin B12 -] 1,000 mcg PO DAILY #30 tablet 04/21/16 Losartan Potassium 25 mg PO DAILY #30 tablet 04/21/16 Metoprolol Succinate [Toprol XL -] 25 mg PO DAILY #30 tab 04/21/16 Prednisone [Deltasone -] 60 mg PO DAILY #42 tablet MDD 60 04/21/16 Problem List - Problems (1) Gait disturbance Code(s): R26.9 - UNSPECIFIED ABNORMALITIES OF GAIT AND MOBILITY (2) New onset a-fib Code(s): I48.91 - UNSPECIFIED ATRIAL FIBRILLATION (3) Drug abuse Code(s): F19.10 - OTHER PSYCHOACTIVE SUBSTANCE ABUSE, UNCOMPLICATED (4) Hypokalemia Code(s): E87.6 - HYPOKALEMIA (5) Hyponatremia Code(s): E87.1 - HYPO-OSMOLALITY AND HYPONATREMIA This patient is new to me today: No Emergency Visit: Yes ED Registration Date: 04/16/16 Care time: The patient presented to the Emergency Department on the above date and was hospitalized for further evaluation of their emergent condition. Critical Care patient: No - Discharge Referral Referred to [facility] Med P.C.: No
== END 2016-04-21 15:59 | DRG 309 ==
LOC: JER 15:44 → JERBED 18:15 → J4S 20:50
PROVIDERS: ADMIT Internal Medicine; ATTEND Internal Medicine
DX: I48.0 Paroxysmal atrial fibrillation (principal); E87.1 Hypo-osmolality and hyponatremia; F32.9 Major depressive disorder, single episode, unspecified; F41.9 Anxiety disorder, unspecified; G51.0 Bell's palsy; R29.810 Facial weakness; R26.9 Unspecified abnormalities of gait and mobility; I69.393 Ataxia following cerebral infarction; I10 Essential (primary) hypertension; F17.210 Nicotine dependence, cigarettes, uncomplicated; E86.0 Dehydration; E87.6 Hypokalemia; H93.19 Tinnitus, unspecified ear
CPT/HCPCS: 36415; 70450-TC; 70551-TC; 71010-TC; 80048; 80053; 80307; 81003; 81015; 82436; 82550; 82553; 82570; 82607; 83036; 83735; 83930; 83935; 84100; 84133; 84156; 84300; 84439; 84443; 84484; 85025; 85610; 85651; 86038; 86618; 93005; 93010; 93306-TC; 93880-TC; 97116-GP; 97161-GP; 99285-25; G0480

== ENCOUNTER 2016-11-23 07:44 | Day surgery (SDC) | payer OTHER ==
[2016-11-18 12:03] VITALS: BMI 25.7
[2016-11-23] MEDS ORDERED: MIDAZOLAM HCL 2 MG/2 ML SINGLE DOSE VIAL ONE (08:57)
[2016-11-23] MEDS ORDERED: ACETAMINOPHEN 500 MG TABLET (FP) PO PRN (09:23)
[2016-11-23] MEDS ORDERED: POVIDONE-IODINE 5% OPHTHALMIC PREP 30 ML SOLUTION ONE (09:45)
[2016-11-23] MEDS ORDERED: BUPIVACAINE HCL/PF 0.5% (5MG/ML) 10 ML VIAL ONE (09:45)
[2016-11-23] MEDS ORDERED: BACITRACIN 3.5 GM OPTHALMIC OINT TUBE ONE (09:45)
[2016-11-23] MEDS ORDERED: LIDOCAINE 1%/EPI 1:100000 (20 ML MULTI DOSE VIAL) ONE (09:45)
[2016-11-23] MEDS ORDERED: TETRACAINE 0.5% OPHTH SOLN 2 ML BOTTLE ONE (09:45)
[2016-11-23] MEDS ORDERED: GLYCOPYRROLATE 0.2 MG/1 ML VIAL ONE (10:14)
[2016-11-23] MEDS ORDERED: ceFAZolin SODIUM 1 GM VIAL ONE (10:15)
[2016-11-23] MEDS ORDERED: DEXAMETHASONE SOD PHOSPHATE 4 MG/1 ML VIAL ONE (10:19)
[2016-11-23] MEDS ORDERED: ONDANSETRON 4 MG/2 ML VIAL ONE (10:19)
[2016-11-23] MEDS ORDERED: PROPOFOL 20 ML ONE ×2 (10:25)
[2016-11-23] MEDS ORDERED: oxyCODONE HCL 5 MG TABLET PO PRN (11:03)
[2016-11-23] MEDS ORDERED: ONDANSETRON 4 MG/2 ML VIAL IVPUSH PRN (11:03)
[2016-11-23] MEDS ORDERED: LACTATED RINGERS SOLUTION 1,000 ML IV SCH (11:15)
[2016-11-23 13:32] VITALS: TEMP 97.7
--- NOTE | 2016-11-23 13:41 | OP ---
DATE OF OPERATION: 11/23/2016 PREOPERATIVE DIAGNOSES: Facial palsy, left, with retraction and laxity of left lower lid, and epiphora of left eye. POSTOPERATIVE DIAGNOSES: Facial palsy, left, with retraction and laxity of left lower lid and epiphora of left eye. PROCEDURE: 1. Lateral tarsal strip, left lower lid. 2. Orbicularis suspension, left. SURGEON: Kimberly Loera MD ANESTHESIA: Local sedation. COMPLICATIONS: None. ESTIMATED BLOOD LOSS: 3-5 mL DESCRIPTION OF OPERATION: Patient brought to the operating room and placed on the operating room table. Vital signs were monitored by Anesthesia. Tetracaine was placed in both eyes. Lateral canthal line was marked to both lateral canthi. Patient was given intravenous sedation, and a 50/50 mixture of 2% Xylocaine to 1:100,000 epinephrine and 0.5% Marcaine was injected subcutaneously at the lateral canthus, down to the periosteum, lateral third of the upper and lower lids. The patient was prepped and draped in the usual sterile fashion, exposing both eyes. Lateral canthal incision was made to the left lateral canthus, carried down to periosteum. Inferior daisy and lateral canthal tendon were from the orbital rim with sharp dissection, and cautery was used for hemostasis. Antibiotic irrigation was used throughout the case. Inferior and lateral retractors were released, and the lid was overlapped at the orbital rim, marked with sterile marking pen, divided into an anterior and posterior lamella. The anterior lamella was excised. The posterior lamella was denuded of epithelium posteriorly and superiorly, and it was reattached at an appropriate spot in the orbital rim with a double-arm 5-0 Prolene suture, reinforced with two 6-0 Vicryl lasso sutures. A 5-0 chromic suture was used to recreate the canthus in buried fashion at the lateral upper and lower lid, and then, the skin lateral to this newly-created canthus was closed with interrupted 6-0 plain suture prior to tying the Prolene. The Prolene was then tied, reattaching the tarsal strip to the orbital rim with the appropriate tension. The excess tarsal strip was overlapped, tied with a 5-0 chromic. An orbicularis flap was now dissected off of the overlying skin about one-third of the way down and across the eyelid, creating a nice orbicularis suspension. The orbicularis was then secured to the fascia and periosteum lateral to the orbital rim with a double-arm 5-0 Vicryl suture. The excess orbicularis was trimmed, and it was sutured to the superior orbicularis with 5-0 chromic, and the skin was closed with interrupted 6-0 plain suture in plastic technique. Bacitracin was placed on the sutures, and the patient was taken to the recovery room in stable condition. KIMBERLY LOERA M.D. KATHARINA/[id number]
[2016-11-23 13:56] VITALS: BP 130/78; PULSE 56
--- NOTE | 2016-11-25 17:05 | PATH ---
Surgical Pathology Report Patient Name: CHRISTIE TREADWELL [facility]. Rec. #: [id number] /Age/Gender: 1950 (Age: 66) / M Account: [id number] Location: [facility] Taken: 11/23/2016 Received: 11/24/2016 Reported: 11/25/2016 Physicians: Gabriele Nelson Specimen(s) Received LEFT LOWER EYELID Clinical History Ectropion left lower eyelid Final Diagnosis LEFT LOWER EYELID, ECTROPION REPAIR: EYELID TISSUE WITH NO SIGNIFICANT PATHOLOGIC FINDINGS. Electronically Signed Taina Monk M.D. Gross Description Received in formalin, labeled "left lower eyelid" is a antony, irregular portion of soft tissue measuring 0.3 cm. in greatest dimension. The specimen is submitted in toto in one cassette. 11/24/201611/24/2016
== END 2016-11-23 14:00 | disposition home or self-care (01) ==
LOC: FASU 07:44
PROVIDERS: ATTEND Ophthalmology
PROC: 08BR0ZZ Excision of Left Lower Eyelid, Open Approach (ICD-10-PCS; principal; 2016-11-23 10:21)
DX: G51.0 Bell's palsy (principal); H04.202 Unspecified epiphora, left side; H02.535 Eyelid retraction left lower eyelid; H02.89 Other specified disorders of eyelid
CPT/HCPCS: 88304-TC; 94760

== ENCOUNTER 2019-03-19 13:10 | Emergency (ER) | payer OTHER ==
[2019-03-19 13:34] VITALS: BP 104/68; PULSE 72; TEMP 98.1; BMI 25.4
--- NOTE | 2019-03-19 15:25 | PDOC ---
History of Present Illness - General Chief Complaint: Pain Stated Complaint: RT SHOULDER INJURY Time Seen by Provider: 03/19/19 14:52 - History of Present Illness Initial Comments: 03/19/19 15:22 68-year-old male presents for evaluation of atraumatic onset of right shoulder pain times approximately 1 week without systemic symptoms Past History - Past Medical History Allergies/Adverse Reactions: Allergies Allergy/AdvReac Type Severity Reaction Status Date / Time No Known Allergies Allergy Verified 03/19/19 13:34 Home Medications: Ambulatory Orders Olanzapine [Zyprexa] 5 mg PO HS 11/18/16 Apixaban [Eliquis] 5 mg PO BID 07/28/17 Bupropion HCl [Bupropion HCl Sr] 150 mg PO DAILY 07/28/17 Bupropion HCl [Wellbutrin Xl] 300 mg PO DAILY 07/28/17 Bisacodyl [Dulcolax] 20 mg PO DAILY 2 Days #8 tablet. 07/29/17 Anemia: No Asthma: No Cancer: No Cardiac Disorders: Yes (ATRIAL FIBRILLATION) CVA: No ("AT SOME POINT IN TIME HAD STROKE") COPD: No CHF: No Dementia: No Diabetes: No GI Disorders: Yes (H/O HEMORRHOIDS,CHRONIC CONSTIPATION) Disorders: Yes (BLADDER MASS -BENIGN) HTN: No Hypercholesterolemia: No Liver Disease: No Psychiatric Problems: Yes (DEPRESSION.) Seizures: No Thyroid Disease: No - Surgical History Abdominal Surgery: No Appendectomy: No Cardiac Surgery: No Cholecystectomy: No Lung Surgery: Yes (LT THORACIC SX -- PNEUMOTHORAX,2011) Neurologic Surgery: No Orthopedic Surgery: No - Immunization History Immunization Up to Date: Yes - Psycho Social/Smoking Cessation Hx Smoking History: Never smoked Have you smoked in the past 12 months: No Number of Cigarettes Smoked Daily: 10 If you are a former smoker, when did you quit?: 2018 Information on smoking cessation initiated: No 'Breaking Loose' booklet given: 07/28/17 Hx Alcohol Use: No Drug/Substance Use Hx: No Substance Use Type: Alcohol Hx Substance Use Treatment: No Review of Systems - Review of Systems Musculoskeletal: Yes: Joint Pain *Physical Exam - Vital Signs Last Vital Signs Temp Pulse Resp BP Pulse Ox 98.1 F 72 17 104/68 97 03/19/19 13:30 03/19/19 13:30 03/19/19 13:30 03/19/19 13:30 03/19/19 13:30 - Physical Exam 03/19/19 15:23 There appears to be right shoulder atrophy in the region of the pack and deltoid normal skin color and temperature full range of motion with mild discomfort at terminal ranges 5 out of 5 strength with supraspinatus isolation and external rotation no impingement maneuver signs upper extremity compartments are soft and nontender neurovascular intact ED Treatment Course - RADIOLOGY Radiology Studies Ordered: Category Date Time Status SHOULDER-RIGHT [RAD] Stat Radiology 03/19/19 14:58 Completed Medical Decision Making - Medical Decision Making 03/19/19 15:23 X-rays of the right shoulder are normal I will refer this patient to both orthopedic surgery and neurology for further evaluation and treatment options. Discharge - Discharge Information Problems reviewed: Yes Clinical Impression/Diagnosis: Right shoulder pain Condition: Stable Disposition: HOME - Admission No - Follow up/Referral Referrals: Liss Mcdowell MD [Primary Care Provider] - Shaquille Arguello DO [Staff Physician] - Earl Mao MD [Staff Physician] - - Patient Discharge Instructions Additional Instructions: Return to the emergency room for worsening symptoms and without fail follow-up with both neurology and orthopedic surgery in the next 2 to 3 days for further evaluation and treatment options. - Post Discharge Activity
== END 2019-03-19 15:38 | disposition home or self-care (01) ==
LOC: JERFT 13:10
DX: M25.511 Pain in right shoulder (principal); I48.91 Unspecified atrial fibrillation; Z79.01 Long term (current) use of anticoagulants; K59.09 Other constipation; F32.9 Major depressive disorder, single episode, unspecified; Z87.19 Personal history of other diseases of the digestive system; Z87.448 Personal history of other diseases of urinary system
CPT/HCPCS: 73030-TC-RT-FY; 99282-25

== ENCOUNTER 2019-03-20 17:27 | Emergency (ER) | payer OTHER, MEDICARE ==
[2019-03-20 17:44] VITALS: BP 103/59; PULSE 71; TEMP 97.7; BMI 25.4
--- NOTE | 2019-03-20 18:59 | PDOC ---
History of Present Illness - General Chief Complaint: Pain Stated Complaint: PAIN Time Seen by Provider: 03/20/19 18:35 - History of Present Illness Initial Comments: 03/20/19 18:57 68-year-old male presents for evaluation today again for left hip weakness when he went to get up today from sitting to standing Past History - Past Medical History Allergies/Adverse Reactions: Allergies Allergy/AdvReac Type Severity Reaction Status Date / Time No Known Allergies Allergy Verified 03/20/19 17:46 Home Medications: Ambulatory Orders Olanzapine [Zyprexa] 5 mg PO HS 11/18/16 Apixaban [Eliquis] 5 mg PO BID 07/28/17 Bisacodyl [Dulcolax] 20 mg PO DAILY 2 Days #8 tablet. 07/29/17 Bupropion HCl [Bupropion Xl] 450 mg PO DAILY 03/20/19 Carbidopa/Levodopa [Carbidopa-Levodopa 25-100 Tab] 1 each PO ASDIR 03/20/19 Ferrous Sulfate [Feosol] 325 mg PO DAILY 03/20/19 Anemia: No Asthma: No Cancer: No Cardiac Disorders: Yes (ATRIAL FIBRILLATION) CVA: No ("AT SOME POINT IN TIME HAD STROKE") COPD: No CHF: No Dementia: No Diabetes: No GI Disorders: Yes (H/O HEMORRHOIDS,CHRONIC CONSTIPATION) Disorders: Yes (BLADDER MASS -BENIGN) HTN: No Hypercholesterolemia: No Liver Disease: No Psychiatric Problems: Yes (DEPRESSION.) Seizures: No Thyroid Disease: No - Surgical History Abdominal Surgery: No Appendectomy: No Cardiac Surgery: No Cholecystectomy: No Lung Surgery: Yes (LT THORACIC SX -- PNEUMOTHORAX,2011) Neurologic Surgery: No Orthopedic Surgery: No - Immunization History Immunization Up to Date: Yes - Psycho Social/Smoking Cessation Hx Smoking History: Unknown if ever smoked Have you smoked in the past 12 months: No Number of Cigarettes Smoked Daily: 10 If you are a former smoker, when did you quit?: 2018 'Breaking Loose' booklet given: 07/28/17 Hx Alcohol Use: No Drug/Substance Use Hx: No Substance Use Type: Alcohol Hx Substance Use Treatment: No Review of Systems - Review of Systems Musculoskeletal: Yes: Joint Pain *Physical Exam - Vital Signs Last Vital Signs Temp Pulse Resp BP Pulse Ox 97.7 F 71 18 103/59 L 99 03/20/19 17:41 03/20/19 17:41 03/20/19 17:41 03/20/19 17:41 03/20/19 17:41 - Physical Exam 03/20/19 18:57 Decreased range of motion of the lumbar spine no midline tenderness mild paralumbar musculature spasm and tenderness. No hip tenderness. Patient ambulates with a cane at baseline no gross sensorimotor deficits neurovascular intact. Medical Decision Making - Medical Decision Making 03/20/19 18:58 Follow-up with neurosurgery for further evaluation and treatment options. No gross findings on examination today Discharge - Discharge Information Problems reviewed: Yes Clinical Impression/Diagnosis: Left hip pain Condition: Stable Disposition: HOME - Admission No - Follow up/Referral Referrals: Satnam Small MD, [facility] [Staff Physician] - - Patient Discharge Instructions Additional Instructions: Tylenol as directed for pain and return to the emergency room should symptoms worsen. Without fail follow-up with neurology as well as orthopedic surgery in 2 to 3 days for further evaluation and treatment options. - Post Discharge Activity
== END 2019-03-20 19:05 | disposition home or self-care (01) ==
LOC: JERFT 17:27
DX: M25.552 Pain in left hip (principal); F32.9 Major depressive disorder, single episode, unspecified; N39.9 Disorder of urinary system, unspecified; K92.9 Disease of digestive system, unspecified; I48.91 Unspecified atrial fibrillation
CPT/HCPCS: 99281-25

== ENCOUNTER 2021-07-04 15:53 | Inpatient (IN) | payer OTHER, MEDICARE ==
[2021-07-04] MEDS ORDERED: ACETAMINOPHEN 1000 MG/100 ML BAG IVPB ONE (16:27)
[2021-07-04] MEDS ORDERED: ACETAMINOPHEN INJECTION 100 ML IVPB ONE (16:57)
[2021-07-04 17:21] LABS: HEMATOCRIT 32.2 % (35.4-49); HEMOGLOBIN 11.5 G/dL (11.7-16.9); MCH 34.3 pg (25.7-33.7); MCHC 35.8 g/dl (32.0-35.9); MEAN CELL VOLUME 95.9 fl (80-96); MEAN PLT VOLUME 8.5 fl (7.5-11.1); PLATELET COUNT 188.8 10^3/uL (134-434); RBC 3.36 10^6/uL (4.00-5.60); RDW 14.4 % (11.9-15.9); WHITE BLOOD COUNT 11.8 10^3/uL (4.0-10.8)
[2021-07-04 17:32] LABS: ALBUMIN 3.7 g/dl (3.4-5.0); BILIRUBIN,TOTAL 1.3 mg/dl (0.2-1); CALCIUM 9.2 mg/dl (8.5-10); CREATININE 1.3 mg/dl (0.55-1.3); MAGNESIUM 2.4 mg/dL (1.8-2.4)
[2021-07-04] MEDS ORDERED: SODIUM CHLORIDE 0.9% 500 ML INFUS.BAG IV ONE (17:36)
[2021-07-04 17:41] LABS: ANISOCYTOSIS RARE; PLATELET ESTIMATE ADEQUATE
[2021-07-04] MEDS ORDERED: morphine SULFATE 4 MG/ML VIAL ONE (19:21)
[2021-07-04] MEDS ORDERED: morphine CARPU-JECT 2 MG/1 ML DISP.SYRIN IVPUSH ONE (19:21)
[2021-07-04] MEDS ORDERED: methylPREDNISolone NA SUCC 125 MG/2 ML VIAL ONE (20:42)
[2021-07-04] MEDS ORDERED: methylPREDNISolone NA SUCC 125 MG/2 ML VIAL IVPUSH ONE (21:41)
[2021-07-05 04:00] VITALS: BMI 24.4
[2021-07-05] MEDS ORDERED: SODIUM CHLORIDE 1,000 ML IV SCH (04:45)
[2021-07-05] MEDS ORDERED: GLYCERIN 1 RECTAL SUPPOSITORY, ADULT RC ONE (04:49)
[2021-07-05] MEDS ORDERED: CARBIDOPA/LEVODOPA 25/100 TABLET (FP) PO SCH (05:00)
[2021-07-05] MEDS ORDERED: SODIUM PHOSPHATE/NA BIPHOS 133 ML ENEMA RC ONE (05:01)
[2021-07-05] MEDS ORDERED: HEPARIN NA (PORCINE) 5,000 UNITS/ML 1ML VIAL SQ SCH (06:00)
[2021-07-05] MEDS ORDERED: BISACODYL 5 MG TABLET.DR (FP) PO PRN (08:02)
[2021-07-05] MEDS ORDERED: SODIUM ZIRCONIUM CYCLOSILICATE (LOKELMA) 5 GM PACKET PO ONE (08:45)
[2021-07-05 09:09] LABS: HEMATOCRIT 34.4 % (35.4-49); HEMOGLOBIN 11.4 GM/dL (11.7-16.9); LYMPH % 5.1 % (8-40); MCHC 33.3 g/dl (32.0-35.9); MEAN CELL VOLUME 96.3 fl (80-96); MEAN PLT VOLUME 8.6 fl (7.5-11.1); MONO % 8.8 % (3.8-10.2); NEUT % 86.1 % (42.8-82.8); PLATELET COUNT 174 10^3/uL (134-434); RBC 3.57 M/mm3 (4.00-5.60); RDW 13.8 % (11.9-15.9); WHITE BLOOD COUNT 11.1 K/mm3 (4.0-10.0)
[2021-07-05 09:36] LABS: CALCIUM 8.9 mg/dL (8.5-10.1)
[2021-07-05 09:37] LABS: ALBUMIN 3.2 g/dl (3.4-5.0); BLOOD UREA NITROGEN 76.2 mg/dL (7-18); MAGNESIUM 3.5 mg/dL (1.8-2.4)
[2021-07-05 09:38] LABS: PHOSPHOROUS 4.6 mg/dL (2.5-4.9); TOT PROT 6.1 g/dl (6.4-8.2)
[2021-07-05 09:40] LABS: BILIRUBIN,TOTAL 1.4 mg/dL (0.2-1); CREATININE 1.8 mg/dL (0.55-1.3)
[2021-07-05] MEDS ORDERED: BISACODYL 5 MG TABLET.DR (FP) PO SCH (10:00)
[2021-07-05] MEDS ORDERED: FERROUS SO4 325 MG TABLET (FP) PO SCH (10:00)
[2021-07-05] MEDS ORDERED: APIXABAN 5 MG TABLET PO SCH (10:00)
[2021-07-05] MEDS: CARBIDOPA/LEVODOPA 25/100 TABLET (FP) PO SCH ×4 (10:13→21:33)
[2021-07-05] MEDS ORDERED: POLYETHYLENE GLYCOL (HEALTHYLAX) 3350 17 GM PACKET PO SCH (14:00)
[2021-07-05] MEDS ORDERED: MAGNESIUM CITRATE 300 ML BOTTLE PO ONE (15:31)
[2021-07-05] MEDS ORDERED: MINERAL OIL ENEMA 133 ML ENEMA PR ONE (16:08)
[2021-07-05] MEDS ORDERED: DEXTROSE 5%-0.45% SALINE 1,000 ML IV SCH (16:15)
[2021-07-05 17:17] VITALS: TEMP 98.9
[2021-07-05] MEDS: POLYETHYLENE GLYCOL (HEALTHYLAX) 3350 17 GM PACKET PO SCH ×2 (17:19→21:33)
[2021-07-05 21:55] VITALS: BP 139/83; PULSE 81
[2021-07-06] MEDS ORDERED: LACTATED RINGERS SOLUTION 1000 ML INFUS.BAG IV ONE
[2021-07-06] MEDS ORDERED: LACTATED RINGERS SOLUTION 1,000 ML/1,000 ML INFUS.BAG IV SCH ×2 (00:15)
[2021-07-06] MEDS ORDERED: VASOPRESSIN 40 UNITS/100 ML BAG IV SCH (00:15)
[2021-07-06 00:59] LABS: BASO % 0.1 % (0-2.0); HEMATOCRIT 33.1 % (35.4-49); HEMOGLOBIN 10.4 GM/dL (11.7-16.9); LYMPH % 28.7 % (8-40); MCH 32.2 pg (25.7-33.7); MCHC 31.4 g/dl (32.0-35.9); MEAN CELL VOLUME 102.7 fl (80-96); MEAN PLT VOLUME 9.1 fl (7.5-11.1); MONO % 7.7 % (3.8-10.2); NEUT % 63.5 % (42.8-82.8); PLATELET COUNT 148 10^3/uL (134-434); RBC 3.22 M/mm3 (4.00-5.60); RDW 15.1 % (11.9-15.9); WHITE BLOOD COUNT 9.2 K/mm3 (4.0-10.0)
[2021-07-06 01:17] LABS: CHLORIDE 100 mmol/L (98-107); SODIUM 136 mmol/L (136-145)
[2021-07-06 01:19] LABS: CALCIUM 9.5 mg/dL (8.5-10.1); CO2 14 mmol/L (21-32); GLUCOSE,RANDOM 199 mg/dL (74-106)
[2021-07-06 01:22] LABS: CREATININE 3.4 mg/dL (0.55-1.3); SGPT/ALT 36 U/L (13-61)
[2021-07-06 01:23] LABS: SGOT/AST 310 U/L (15-37)
[2021-07-06 01:24] LABS: BILIRUBIN,TOTAL 0.8 mg/dL (0.2-1)
[2021-07-06 01:26] LABS: ALBUMIN 2.4 g/dl (3.4-5.0); ALK PHOS 566 U/L (45-117); ANION GAP 22 MMOL/L (8-16)
[2021-07-06] MEDS ORDERED: ASPIRIN 81 MG CHEWABLE TABLETS PO SCH (10:00)
[2021-07-06] MEDS ORDERED: MUPIROCIN 2% TOPICAL OINTMENT FOR DECOLONIZATION NS SCH (10:00)
[2021-07-06] MEDS ORDERED: CHLORHEXIDINE GLUCONATE 4% CLEANSER FOR DECOLONIZATION TP SCH (22:00)
== END 2021-07-06 00:56 | disposition expired | DRG 389 ==
LOC: FER 15:53 → JERBED 07-05 03:10 → J7W 07-05 03:16 → JICU 07-06 00:18
PROVIDERS: ADMIT Internal Medicine; ATTEND Nurse Practitioner Acute Care
PROC: 5A1935Z Respiratory Ventilation, Less than 24 Consecutive Hours (ICD-10-PCS; principal; 2021-07-06)
PROC: 0BH17EZ Insertion of Endotracheal Airway into Trachea, Via Natural or Artificial Opening (ICD-10-PCS; 2021-07-06)
PROC: 05HN33Z Insertion of Infusion Device into Left Internal Jugular Vein, Percutaneous Approach (ICD-10-PCS; 2021-07-06)
PROC: B544ZZA Ultrasonography of Left Jugular Veins, Guidance (ICD-10-PCS; 2021-07-06)
PROC: 5A12012 Performance of Cardiac Output, Single, Manual (ICD-10-PCS; 2021-07-06)
DX: K56.41 Fecal impaction (principal); E87.1 Hypo-osmolality and hyponatremia; N17.9 Acute kidney failure, unspecified; I48.91 Unspecified atrial fibrillation; Z79.01 Long term (current) use of anticoagulants; G20 Parkinson's disease; E87.5 Hyperkalemia; D64.9 Anemia, unspecified; G51.0 Bell's palsy; N18.9 Chronic kidney disease, unspecified; I48.0 Paroxysmal atrial fibrillation; K40.90 Unilateral inguinal hernia, without obstruction or gangrene, not specified as recurrent
CPT/HCPCS: 0241U-QW; 36415; 71046-TC-FY; 74176-TC; 80053; 81003; 83735; 84100; 85025; 86850; 86900; 86901; 87086; 93005; 93971-TC; 94002; 99285-25; J3490